=== PATIENT | male | born 1995 | race Caucasian/White ===

== ENCOUNTER 2016-06-07 20:00 | Inpatient (IN) | payer OTHER ==
[~2016-06-07] VITALS: Ht 180.3 cm; Wt 91.2 kg
[2016-06-07 20:06] VITALS: BP 169/70; PULSE 148; RESP 20; TEMP 98.8; O2SAT 99
[2016-06-07] MEDS ORDERED: LORazepam 2 MG/ML VIAL ONE (20:21)
[2016-06-07] MEDS ORDERED: SODIUM CHLOR 0.9% 1000 ML INJ 1,000 ML IV SCH (20:24)
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
[2016-06-07] MEDS ORDERED: SODIUM CHLORIDE 0.9% FLUSH 10 ML FLUSH IVF PRN (20:30)
[2016-06-07] MEDS ORDERED: LORazepam 2 MG/ML VIAL IV PUSH ONE (20:30)
[2016-06-07 20:44] LABS: AUTOMATED NEUTROPHIL # 9.3 TH/MM3 (1.8-7.7); BASOPHIL % 0.2 % (0.0-2.0); EOSINOPHIL % 0.2 % (0.0-4.0); HEMATOCRIT 44.6 % (39.0-51.0); LYMPH % 13.2 % (9.0-44.0); LYMPHOCYTE # 1.6 TH/MM3 (1.0-4.8); MEAN CELL VOLUME 88.4 FL (80.0-100.0); MEAN CORPUSCULAR HEMOGLOBIN 30.4 PG (27.0-34.0); MEAN CORPUSCULAR HGB CONC 34.4 % (32.0-36.0); MONO % 9.5 % (0.0-8.0); NEUT % 76.9 % (16.0-70.0); PLATELET COUNT 311 TH/MM3 (150-450); RED BLOOD COUNT 5.05 MIL/MM3 (4.50-5.90); RED CELL DISTRIBUTION WIDTH 13.5 % (11.6-17.2); WHITE BLOOD COUNT 12.1 TH/MM3 (4.0-11.0)
[2016-06-07 20:47] LABS: HEMO FLAGS AUTO DIFF
[2016-06-07 21:27] LABS: PLATELET ESTIMATE SMEAR NORMAL (NORMAL); PLATELET MORPHOLOGY NORMAL (NORMAL); SCAN/DIFF AUTO DIFF CONFIRMED
[2016-06-07 22:42] VITALS: BP 158/78; PULSE 99; RESP 20; O2SAT 99
[2016-06-07 23:00] LABS: AMPHETAMINE, URINE NEG (NEG); BARBITURATES, URINE NEG (NEG); COCAINE, URINE NEG (NEG)
[2016-06-07] MEDS ORDERED: ONDANSETRON HCL 4 MG/2 ML VIAL ONE (23:21)
[2016-06-07] MEDS ORDERED: ONDANSETRON HCL 4 MG/2 ML VIAL IV ONE (23:30)
[2016-06-08 01:42] LABS: ALKALINE PHOSPHATASE 62 U/L (45-117); TOTAL BILIRUBIN ADULT 2.4 MG/DL (0.2-1.0)
[2016-06-08 01:45] LABS: ALT (GPT) 30 U/L (12-78); ANION GAP 14 MEQ/L (5-15); AST (GOT) 43 U/L (15-37); BICARBONATE 22.4 MEQ/L (21.0-32.0); BLOOD UREA NITROGEN 10 MG/DL (7-18); CHLORIDE 102 MEQ/L (98-107); GLOMERULAR FILTRATION RATE 68 ML/MIN (>89); POTASSIUM 3.8 MEQ/L (3.5-5.1); SODIUM (NA) 138 MEQ/L (136-145)
[2016-06-08 05:56] VITALS: PULSE 140; RESP 22; O2SAT 100
--- NOTE | 2016-06-08 06:14 | PD ---
Physical Exam Time Seen by Provider: 06:00 Data Data Last Documented VS Vital Signs Date Time Temp Pulse Resp B/P Pulse Ox O2 Delivery O2 Flow Rate FiO2 06/08/16 05:56 140 22 100 06/07/16 22:42 158/78 Room Air 06/07/16 20:06 98.8 Orders Lorazepam Inj (Ativan Inj) (06/07/16 20:21) Lorazepam Inj (Ativan Inj) (06/07/16 20:30) Complete Blood Count With Diff (06/07/16 20:24) Comprehensive Metabolic Panel (06/07/16 20:24) Iv Access Insert/Monitor (06/07/16 20:24) Psych Screen (06/07/16 20:24) Sodium Chloride 0.9% Flush (Ns Flush) (06/07/16 20:30) Drug Screen, Random Urine (06/07/16 20:24) Alcohol (Ethanol) (06/07/16 20:24) Sodium Chlor 0.9% 1000 Ml Inj (Ns 1000 M (06/07/16 20:24) Ondansetron Inj (Zofran Inj) (06/07/16 23:30) Ondansetron Inj (Zofran Inj) (06/07/16 23:21) Diet Regular Basic (06/08/16 Breakfast) Lorazepam Inj (Ativan Inj) (06/08/16 06:15) Olanzapine Inj (Zyprexa Inj) (06/08/16 06:15) Electrocardiogram (06/08/16 ) Labs Laboratory Tests Test 06/07/16 06/07/16 06/08/16 20:20 22:41 01:16 White Blood Count 12.1 TH/MM3 Red Blood Count 5.05 MIL/MM3 Hemoglobin 15.3 GM/DL Hematocrit 44.6 % Mean Corpuscular Volume 88.4 FL Mean Corpuscular Hemoglobin 30.4 PG Mean Corpuscular Hemoglobin 34.4 % Concent Red Cell Distribution Width 13.5 % Platelet Count 311 TH/MM3 Mean Platelet Volume 9.8 FL Neutrophils (%) (Auto) 76.9 % Lymphocytes (%) (Auto) 13.2 % Monocytes (%) (Auto) 9.5 % Eosinophils (%) (Auto) 0.2 % Basophils (%) (Auto) 0.2 % Neutrophils # (Auto) 9.3 TH/MM3 Lymphocytes # (Auto) 1.6 TH/MM3 Monocytes # (Auto) 1.2 TH/MM3 Eosinophils # (Auto) 0.0 TH/MM3 Basophils # (Auto) 0.0 TH/MM3 CBC Comment AUTO DIFF Differential Comment AUTO DIFF CONFIRMED Platelet Estimate NORMAL Platelet Morphology Comment NORMAL Red Cell Morphology Comment NORMAL Urine Opiates Screen NEG Urine Barbiturates Screen NEG Urine Amphetamines Screen NEG Urine Benzodiazepines Screen NEG Urine Cocaine Screen NEG Urine Cannabinoids Screen POS Sodium Level 138 MEQ/L Potassium Level 3.8 MEQ/L Chloride Level 102 MEQ/L Carbon Dioxide Level 22.4 MEQ/L Anion Gap 14 MEQ/L Blood Urea Nitrogen 10 MG/DL Creatinine 1.32 MG/DL Estimat Glomerular Filtration 68 ML/MIN Rate Random Glucose 88 MG/DL Calcium Level 8.8 MG/DL Total Bilirubin 2.4 MG/DL Aspartate Amino Transf 43 U/L (AST/SGOT) Alanine Aminotransferase 30 U/L (ALT/SGPT) Alkaline Phosphatase 62 U/L Total Protein 7.4 GM/DL Albumin 4.4 GM/DL Ethyl Alcohol Level LESS THAN 3 MG/DL [facility] Medical Record Reviewed: Yes Supervised Visit with DEVYN: No Narrative Course I was asked to reassess this patient who has been previously medically cleared. Please see previous providers notes. He was initially given Ativan when he arrived here. He then was transferred to [facility] and has been reportedly sleeping throughout the night after Ativan administration. When he was waking back up he became agitated and anxious and tremulous and tachycardic, similar to his initial presentation. On examination he is anxious, tremulous, tachycardic. His labwork has been reviewed. He is positive for cannabinoids, no other drugs. He denies any drug use. I discussed with my attending Dr. Casas who previously examined the patient and spoke to his father, he has had a similar psychotic break in the past. We will provide the patient additional doses of Ativan and Zyprexa here. His initial EKG when he first arrived was sinus tachycardia, repeat EKG reveals sinus tachycardia. This seems to be related to his psychosis. The patient is still medically cleared. Diagnosis Primary Impression: Mood disorder Additional Impression: Anxiety Scripts No Active Prescriptions or Reported Meds Evgeny Alas Jun 08, 2016 06:14
[2016-06-08] MEDS ORDERED: OLANZapine IM 10 MG VIAL IM ONE (06:15)
[2016-06-08] MEDS ORDERED: LORazepam 2 MG/ML VIAL IM ONE (06:15)
[2016-06-08 11:30] VITALS: BP 99/56; PULSE 86; RESP 18; O2SAT 100
--- NOTE | 2016-06-08 13:59 | EKG ---
Date Performed: 06/07/2016 Time Performed: 20:16:02 PTAGE: 20 years EKG: SINUS TACHYCARDIA WITH SHORT NH INTERVAL, POSSIBLE ATRIAL FLUTTER ABNORMAL RHYTHM ECG NO PREVIOUS TRACING DOCTOR: Rosa Ortega Interpretating Date/Time 06/08/2016 13:58:19
--- NOTE | 2016-06-08 14:16 | EKG ---
Date Performed: 06/08/2016 Time Performed: 06:16:07 PTAGE: 20 years EKG: SINUS TACHYCARDIA Since the prior tracing, there has been a slowing of supraventricular tac hycardia, and the patient is now clearly in Sinus rhythm . The PREVIOUS TRACING was most likely sinus rhythm, but clinical correlation would be necessa ry. ABNORMAL RHYTHM ECG INTERPRETATION BASED ON A DEFAULT AGE OF 38 YEARS PREVIOUS TRACING on 06/07/16 DOCTOR: Rosa Ortega Interpretating Date/Time 06/08/2016 14:14:15
[2016-06-08 14:45] VITALS: BP 139/85; PULSE 112; RESP 20; O2SAT 99
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
[2016-06-08] MEDS ORDERED: diphenhydrAMINE HCL 50 MG/ML VIAL IM PRN (15:30)
[2016-06-08] MEDS ORDERED: LORazepam 2 MG/ML VIAL IM PRN (15:30)
[2016-06-08] MEDS ORDERED: MAGNESIUM HYDROXIDE SUSP 30 ML CUP PO PRN (15:30)
[2016-06-08 18:18] VITALS: BP 162/89; PULSE 114; RESP 20; TEMP 98.7; O2SAT 98
[2016-06-08] MEDS ORDERED: ARIPiprazole 5 MG TAB PO SCH (21:00)
[2016-06-08] MEDS: ALUMINUM/MAGNESIUM/SIMETH 30 ML CUP PO PRN (21:15)
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
[2016-06-09] MEDS: traZODone HCL 50 MG TAB PO PRN (00:04)
[2016-06-09] MEDS: LORazepam 1 MG TAB PO PRN ×2 (01:48→13:00)
[2016-06-09 05:45] VITALS: BP 125/76; PULSE 112; RESP 20; TEMP 97.8
[2016-06-09 07:06] LABS: AUTOMATED NEUTROPHIL # 4.7 TH/MM3 (1.8-7.7); BASOPHIL % 0.4 % (0.0-2.0); EOSINOPHIL # 0.1 TH/MM3 (0-0.4); EOSINOPHIL % 1.8 % (0.0-4.0); HEMATOCRIT 40.8 % (39.0-51.0); HEMO FLAGS DIFF FINAL; LYMPH % 24.5 % (9.0-44.0); LYMPHOCYTE # 1.9 TH/MM3 (1.0-4.8); MEAN CELL VOLUME 88.4 FL (80.0-100.0); MEAN CORPUSCULAR HEMOGLOBIN 30.9 PG (27.0-34.0); MONO % 11.2 % (0.0-8.0); NEUT % 62.1 % (16.0-70.0); PLATELET COUNT 242 TH/MM3 (150-450); RED BLOOD COUNT 4.62 MIL/MM3 (4.50-5.90); WHITE BLOOD COUNT 7.6 TH/MM3 (4.0-11.0)
[2016-06-09 07:44] LABS: ALKALINE PHOSPHATASE 66 U/L (45-117); ALT (GPT) 33 U/L (12-78); ANION GAP 11 MEQ/L (5-15); AST (GOT) 55 U/L (15-37); BICARBONATE 25.8 MEQ/L (21.0-32.0); BLOOD UREA NITROGEN 12 MG/DL (7-18); CHLORIDE 102 MEQ/L (98-107); GLOMERULAR FILTRATION RATE 78 ML/MIN (>89); HDL CHOLESTEROL 54.7 MG/DL (40.0-60.0); LDL CHOLESTEROL 26 MG/DL (0-99); POTASSIUM 3.4 MEQ/L (3.5-5.1); SODIUM (NA) 139 MEQ/L (136-145); TOTAL BILIRUBIN ADULT 2.5 MG/DL (0.2-1.0)
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
[2016-06-09] MEDS ORDERED: POTASSIUM CHLORIDE 20 MEQ CONTROLLED RELEASE TAB PO ONE (08:30)
[2016-06-09] MEDS: LORATADINE 10 MG TAB PO SCH (08:57)
--- NOTE | 2016-06-09 10:18 | HHI.PR ---
Subjective Remarks Follow up on patient with AAG, VSD and anxiety. Discussed with NS and patient moved to [address] due to bizarre behavior. Patient states that he feels majestic. He reports to me that his autoimmune disorder is cured. He reports that his heart is beating very well. He has no medical complaints at this time. He denies any palpitations, headaches, dizziness, chest pain, shortness of breath or abdominal pain. Objective Vitals Vital Signs Date Time Temp Pulse Resp B/P Pulse Ox O2 Delivery O2 Flow Rate FiO2 06/09/16 05:45 97.8 112 20 125/76 06/08/16 18:18 98.7 114 20 162/89 98 06/08/16 14:45 112 20 139/85 99 Room Air 06/08/16 11:30 86 18 99/56 100 Room Air Result Diagram: 06/09/16 0604 06/09/16 0604 Objective Remarks GENERAL: This is a well-nourished, well-developed patient. Appears manic. SKIN: No rashes, ecchymoses or lesions. Cool and dry. HEAD: Atraumatic. Normocephalic. No temporal or scalp tenderness. EYES: Extraocular motions intact. No scleral icterus. No injection or drainage. CARDIOVASCULAR: Tachycardic. S1, S2 noted. No murmur appreciated. RESPIRATORY: No accessory muscle use. Clear to auscultation. Breath sounds equal bilaterally. GASTROINTESTINAL: Abdomen soft, non-tender, nondistended. Normoactive bowel sounds x4. MUSCULOSKELETAL: Able to ambulate moves all 4 extremities spontaneously. NEUROLOGICAL: Awake and alert. Manic tangential in speech with flight of ideas. Pressured speech. Medications and IVs Current Medications Medications (Trade) Dose Ordered Sig/Joshua Route Start Time Stop Time Status Last Admin (NS Flush) 2 ml UNSCH PRN IVF 06/07/16 20:30 (Ativan) 1 mg Q6H PRN PO 06/08/16 15:30 06/09/16 13:00 (Ativan Inj) 1 mg Q6H PRN IM 06/08/16 15:30 (Benadryl) 50 mg Q6H PRN PO 06/08/16 15:30 (Benadryl Inj) 50 mg Q6H PRN IM 06/08/16 15:30 (Tylenol) 650 mg Q4H PRN PO 06/08/16 15:30 (Milk Of Magnesia Liq) 30 ml DAILY PRN PO 06/08/16 15:30 (Mag-Al Plus Susp Liq) 30 ml Q6H PRN PO 06/08/16 15:30 06/08/16 21:15 (Desyrel) 50 mg HS PRN PO 06/08/16 15:30 06/09/16 00:04 (Claritin) 10 mg DAILY PO 06/09/16 09:00 (Zofran Odt) 4 mg Q6H PRN PO 06/08/16 21:45 (Abilify) 10 mg HS PO 06/09/16 21:00 A/P Problem List: (1) Mood disorder ICD Code: F39 Status: Acute Assessment and Plan This is a 20-year-old male patient with a past medical history which includes AAG, VSD and anxiety. The patient is currently in inpatient psychiatric center we have been consulted due to history of a AAG and vomiting on a daily basis. Attempted to evaluate patient although patient is psychotic, manic and difficult to assess. Patient reports that he has in the past and returned back to life. Patient has flight of ideas very tangential and unable to provide meaningful information. Psychosis - management per primary psychiatric team Nausea/vomiting - Zofran as needed AAG - Patient states today that he is cured - consult Neurology VSD - last evaluated 2-3 years ago - recommend outpatient follow-up upon discharge Elevated BP measurement of 162/89 - BP well controlled now at 125/76 - tachycardiac - continue to monitor - Clonidine prn with parameters Leucocytosis - improved - WBC 12.1 -> 7.6 - possible stress related Hypokalemia - potassium 3.4 - given by mouth repletion - discussed with patient importance of good po intake JUNIOR - creatinine 1.32 -> 1.17 - likely due to poor po intake - resolved Mild transaminitis - AST 43 --> 55, ALT WNL, alk phos WNL - monitor DVT prophylaxis patient is ambulatory and low risk Written by Ely Chauhan PA-C acting as scribe for Dr. Sarabia on 06/09/16 at 10:17. All or portions of this note were transcribed by scribe Ely GALLEGOS. I , Dr. Nasima Sarabia personally performed the history, physical exam, and medical decision making; and confirmed the accuracy of the information in the transcribed note. Authenticated by Dr. Nasima Sarabia on 06/09/16 at 10:17. Ely Chauhan Jun 09, 2016 10:17 Nasima Sarabia MD Jun 09, 2016 16:45
[2016-06-09] MEDS ORDERED: cloNIDine HCL 0.1 MG TAB PO PRN (15:00)
[2016-06-09 16:36] LABS: HEMOGLOBIN A1b 0.8 %; HEMOGLOBIN Ao 86.8 %; HEMOGLOBIN F 0.7 %; HEMOGLOBIN LA1C 1.8 %; HEMOGLOBIN P3 3.3 %
[2016-06-09 18:16] VITALS: BP 159/86; PULSE 125; RESP 18; TEMP 98.1; O2SAT 100
[2016-06-09] MEDS ORDERED: ARIPiprazole 10 MG TAB PO SCH (21:00)
[2016-06-09] MEDS: ONDANSETRON ODT 4 MG TAB PO PRN (21:01)
[2016-06-10] MEDS: LORazepam 1 MG TAB PO PRN ×2 (02:38→08:41)
[2016-06-10] MEDS: ONDANSETRON ODT 4 MG TAB PO PRN (05:51)
[2016-06-10 06:17] VITALS: BP 161/81; PULSE 92; RESP 18; TEMP 98.1; O2SAT 99
[2016-06-10] MEDS: LORATADINE 10 MG TAB PO SCH (08:40)
[2016-06-10] MEDS: METOPROLOL TARTRATE 25 MG TAB PO SCH ×2 (08:41→20:07)
[2016-06-10] MEDS ORDERED: HALOPERIDOL LACTATE 5 MG/ML AMP ONE (10:28)
[2016-06-10] MEDS ORDERED: LORazepam 2 MG/ML VIAL IM ONE (10:45)
[2016-06-10] MEDS ORDERED: HALOPERIDOL LACTATE 5 MG/ML AMP IM ONE (10:45)
[2016-06-10] MEDS ORDERED: diphenhydrAMINE HCL 50 MG/ML VIAL IM ONE (10:45)
--- NOTE | 2016-06-10 12:07 | HHI.PYPN ---
Subjective Remarks Patient seen and examined. Chart reviewed. Case discussed with nursing staff who reports that the patient remains quite manic, believing that he is Julio. He apparently tried to escape from the unit earlier. Nursing staff has also noted some echolalia. Prior to my evaluation, the patient is growing increasingly agitated, and I have ordered him medicated with Haldol, Ativan and Benadryl ETO. A short time after this has been given, I find the patient in his room. His mood remains quite elevated. He is staring out the window and has been singing loudly. He is impulsive and disinhibited and quite distractible. He says, "I went through Hell. I finally healed. I wanted to help everyone for a good cause." I endeavor to discuss his treatment regimen, but the patient is too psychiatrically impaired to engage in such a discussion. He denies side effects from medications noting "I can tolerate any medication. " I did have a lengthy discussion with patient's mother, Zhane, over the phone regarding patient's treatment plan. She notes that he had an index episode of ching in April 2014. He was treated first with lithium and then with Depakote augmented with various antipsychotics including Abilify. He was hospitalized for about 2 weeks at that time and was discharged into parents care, although mother notes that he remains fairly symptomatic from a psychiatric standpoint. He apparently continue to convalesce with improvement in symptoms over the summer of 2014. He went off of his medications in September 2014 and had no further psychiatric disturbance until the current episode. I have a lengthy discussion of the risks and benefits of psychopharmacologic options going forward including but not limited to titration of Abilify, replacing this with another antipsychotic with mood stabilizing properties such as Seroquel or Zyprexa although these would be somewhat difficult given the risk of orthostatic hypotension, and augmentation once again with a mood stabilizer like lithium or Depakote. I highlight that the patient has mild renal and hepatic impairment and we must keep these issues in mind when selecting treatments. We settle on the treatment plan as detailed below. I spent ~30min in telephone consultation with mother. She thanks me for the call. Review of Systems ROS Limitations: Psychotic, Poor Historian Except as stated in HPI: all other systems reviewed are Neg Objective Alert: Yes [place]: Person, Place Mood: Other (Elevated) Affect: Labile (generally expansive) Memory Intact: Comment (Not formally assessed) Hallucinations: Other (Int stim) Delusions: Yes Delusion Type: Grandiose Suicidal: Ideation (No SI voiced) Homicidal: Ideation (No HI voiced) Insight/Judgment Quite poor Remarks No abnormal motor movements noted. Thought process with significant loosening of associations. Speech pressured and rambling. Grooming and hygiene fair. Labs Labs reviewed. K low, and it appears patient refused replacement. Vitals/IOs Vital Signs Date Time Temp Pulse Resp B/P Pulse Ox O2 Delivery O2 Flow Rate FiO2 06/10/16 06:17 98.1 92 18 161/81 99 06/08/16 14:45 Room Air Intake and Output 06/09/16 06/09/16 06/10/16 08:00 16:00 00:00 Intake Total 240 ml Balance 240 ml Assessment & Plan Problem List: (1) Manic episode, severe with psychotic symptoms Assessment & Plan: BPAD manic vs mood disorder due to GMC vs substance-induced mood disorder ICD Code: F30.2 (2) Use of cannabis ICD Code: F12.90 Assessment & Plan Illness has the form of ching. Unclear if the patient has an underlying bipolar illness or if this is related to his medical issues or perhaps to his substance use. I have adjusted the diagnosis accordingly. Titrate Abilify to 15mg qHS for psychosis and mood stabilization. Add Depakote ER 20mg/kg ~= 1500mg qHS for mood stabilization. Mild AST elevation; check LFTs Fri am and Sat pm when we check VPA and ammonia level. Plt ok. Replete K. Check BMP and Mg in morning. I see Dr. Martinez wanted to get MRI brain, but I fear that the patient remains too decompensated at this point for the procedure to be performed safely and mild renal impairment makes use of contrast undesirable. I will await neurology input. Hospitalist input noted and appreciated. Continue to monitor on the high acuity unit. Continue other medications and care as ordered. Justification for Cont. Inpt. Impairment in reality construction. Impairment in social functioning. Complicating conditions. Medication changes in process. High risk for decompensation in a less restrictive environment. Discharge Planning Pending psychiatric stabilization. Patient's family would like to get the patient into some sort of residential facility for extended stabilization. They are exploring options closer to home in [place], and I've asked him to liaison with the counselor regarding discharge planning. Given that the patient required 2 weeks to stabilize during his last episode, I suspect he will require at least as long on this occasion. Request HC Surrog/Guard Advoc?: Yes Noe Sr MD Jun 10, 2016 12:07
[2016-06-10] MEDS ORDERED: POTASSIUM CHLORIDE 20 MEQ CONTROLLED RELEASE TAB PO ONE (13:00)
--- NOTE | 2016-06-10 13:30 | HHI.PR ---
Subjective Remarks Follow up on patient with AAG, VSD and anxiety. Patient seen and examined today. Patient reports he feels "phenomenal". Informs me today that he had a history of VSD but this has resolved. Denies any acute medical complaints. No fever, chills, dizziness, palpitations, chest pain, shortness of breath, N/V or abdominal pain. Objective Vitals Vital Signs Date Time Temp Pulse Resp B/P Pulse Ox O2 Delivery O2 Flow Rate FiO2 06/10/16 06:17 98.1 92 18 161/81 99 06/09/16 18:16 98.1 125 18 159/86 100 I/O 06/09/16 06/09/16 06/09/16 06/10/16 06/10/16 06/10/16 07:00 15:00 23:00 07:00 15:00 23:00 Intake Total 240 ml Balance 240 ml Intake Oral 240 ml Result Diagram: 06/09/16 0604 06/09/16 0604 Objective Remarks GENERAL: This is a well-nourished, well-developed patient. Patient appears manic. SKIN: No rashes, ecchymoses or lesions. Cool and dry. HEAD: Atraumatic. Normocephalic. No temporal or scalp tenderness. EYES: Extraocular motions intact. No scleral icterus. No injection or drainage. CARDIOVASCULAR: Tachycardic. S1, S2 noted. No murmur appreciated. RESPIRATORY: No accessory muscle use. Clear to auscultation. Breath sounds equal bilaterally. GASTROINTESTINAL: Abdomen soft, non-tender, nondistended. Normoactive bowel sounds x4. MUSCULOSKELETAL: Able to ambulate moves all 4 extremities spontaneously. NEUROLOGICAL: Awake and alert. Manic tangential in speech with flight of ideas. Pressured speech. Medications and IVs Current Medications Medications (Trade) Dose Ordered Sig/Joshua Route Start Time Stop Time Status Last Admin (NS Flush) 2 ml UNSCH PRN IVF 06/07/16 20:30 (Benadryl) 50 mg Q6H PRN PO 06/08/16 15:30 (Benadryl Inj) 50 mg Q6H PRN IM 06/08/16 15:30 06/09/16 16:45 (Tylenol) 650 mg Q4H PRN PO 06/08/16 15:30 (Milk Of Magnesia Liq) 30 ml DAILY PRN PO 06/08/16 15:30 (Mag-Al Plus Susp Liq) 30 ml Q6H PRN PO 06/08/16 15:30 06/08/16 21:15 (Desyrel) 50 mg HS PRN PO 06/08/16 15:30 06/09/16 00:04 (Claritin) 10 mg DAILY PO 06/09/16 09:00 06/10/16 08:40 (Zofran Odt) 4 mg Q6H PRN PO 06/08/16 21:45 06/09/16 21:01 (Catapres) 0.1 mg Q6H PRN PO 06/09/16 15:00 (Lopressor) 12.5 mg Q12HR PO 06/10/16 09:00 06/10/16 08:41 (Abilify) 15 mg HS PO 06/10/16 21:00 (Depakote Er) 1,500 mg HS PO 06/10/16 21:00 (Ativan) 2 mg Q6H PRN PO 06/10/16 15:30 (Ativan Inj) 2 mg Q6H PRN IM 06/10/16 15:30 A/P Problem List: (1) Mood disorder ICD Code: F39 Status: Acute Assessment and Plan This is a 20-year-old male patient with a past medical history which includes AAG, VSD and anxiety. The patient is currently in inpatient psychiatric center we have been consulted due to history of a AAG and vomiting on a daily basis. Attempted to evaluate patient although patient is psychotic, manic and difficult to assess. Patient reports that he has in the past and returned back to life. Patient has flight of ideas very tangential and unable to provide meaningful information. Psychosis - management per primary psychiatric team Nausea/vomiting - Zofran as needed AAG - Patient states today that he is cured - consult Neurology, pending VSD - last evaluated 2-3 years ago - recommend outpatient follow-up upon discharge Elevated BP measurement of 161/81, HR 92 - tachycardiac - Begin Lopressor 12.5 mg twice a day - continue to monitor - Clonidine prn with parameters Leucocytosis - improved - WBC 12.1 -> 7.6 - possible stress related Hypokalemia - potassium 3.4 - given by mouth repletion - discussed with patient importance of good po intake - A.m. labs ordered JUNIOR - creatinine 1.32 -> 1.17 - likely due to poor po intake - resolved Mild transaminitis - AST 43 --> 55, ALT WNL, alk phos WNL - monitor - am labs ordered DVT prophylaxis patient is ambulatory and low risk Written by Ely Chauhan PA-C acting as scribe for Dr. Sarabia on 06/10/16 at 11:17. All or portions of this note were transcribed by scribe Ely GALLEGOS. I, Dr. Nasima Sarabia personally performed the history, physical exam, and medical decision making; and confirmed the accuracy of the information in the transcribed note. Authenticated by Dr. Nasima Sarabia on 06/10/16 at 11:17. Ely Chauhan Jun 10, 2016 13:30 Nasima Sarabia MD Jun 10, 2016 17:29
[2016-06-10] MEDS ORDERED: LORazepam 2 MG/ML VIAL IM PRN (15:30)
[2016-06-10] MEDS: DIVALPROEX SODIUM E.R. 500 MG TAB PO SCH (20:08)
[2016-06-10] MEDS ORDERED: ARIPiprazole 15 MG TAB PO SCH (21:00)
[2016-06-10 21:36] VITALS: BP 139/64; PULSE 92; RESP 20; O2SAT 98
[2016-06-11 05:27] VITALS: BP 154/128; PULSE 105; RESP 18; TEMP 98.2; O2SAT 97
[2016-06-11 06:08] VITALS: BP 98/62
--- NOTE | 2016-06-11 08:08 | MB ---
cc: ROE MENG MD DATE OF CONSULTATION 06/10/2016 REASON FOR CONSULTATION Patient with history of AAG for neurological evaluation. HISTORY OF PRESENT ILLNESS Mr. Weaver is a 20-year-old male with a past medical history that includes a AAG/autoimmune autonomic ganglionopathy, VSD and anxiety. The patient is currently in an inpatient psychiatry Center and neurology is consulted to evaluate for this condition. The patient is diagnosed with psychosis ching. During the encounter, the patient was pleasant. Two nurses were at the bedside during my assessment. The patient states that he has no complaints and apparently he is knowledgeable on his condition and he states that he had episodes where his pupils became dilated, very dry mouth, lost his hair with occasional syncopal episodes and what he calls seizures. He was treated with IVIG and plasma exchange at [facility] in [place] and the first time he was diagnosed he was in [place]. The patient denies headache, blurred vision, syncopal episode, dry mouth, convulsions, weakness, numbness, slurred speech at this time. The patient is currently on no medications for control of his autonomic dysfunction. 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 REVIEW OF SYSTEMS A 12-point review of systems is negative except for what is stated in the HPI. ALLERGIES No known allergies. PAST MEDICAL HISTORY 1. AAG 2. VSD and anxiety. PAST SURGICAL HISTORY Congenital missing testicle and prosthesis placed at 13 years old. MEDICATIONS No reported medications. FAMILY HISTORY Mother with history of depression. Grandfather heart disease, cardiac valve disease. Father hypertensive. SOCIAL HISTORY No reported tobacco abuse. Urine toxicology positive for cannabis. PHYSICAL EXAMINATION GENERAL: Awake, alert, well-nourished, pleasant, good historian, calm and cooperative. HEENT: Atraumatic, normocephalic. Intact hearing and vision. CARDIOVASCULAR: Regular rate and rhythm. RESPIRATORY: Clear to auscultation. No wheezes. ABDOMEN: Soft, nontender. MUSCULOSKELETAL: No edema. No deformity, able to move four extremities. NEUROLOGIC: Awake, alert and oriented to time, person and place. Intact speech. Intact speech content. Cranial nerves II through XII are grossly intact. Motor, sensory, and cerebellar function are intact. Intact standing and gait. Romberg is negative. No ataxia. LABORATORY DATA UAT positive for cannabinoids.WBC 7.6, hemoglobin 14.3, platelet 242.Sodium is 139 potassium 3.4, BUN 12, creatinine 1.17, A1c is 5.1, calcium 9.1,bilirubin 12.5, AST 55, ALT 33, cholesterol 90, TSH 0.854. DIAGNOSTIC IMPRESSION 1. Autoimmune autonomic ganglionopathy (AAG) 2. Anxiety 3. Psychosis PLAN 1. Neurological examination is nonfocal. 2. No evidence of clinical signs or symptoms of any autonomic disturbances/dysautonomia. 3. Neuro checks q. four hourly. 4. Orthostatic vitals q.12 hourly. 5. Neurology will sign off. 6. Please call for questions. Thank you for the opportunity to participate in the care of this patient. MD KEMAR Chang/MARYLOU /12:55 AM /7:48 AM JIMMY
[2016-06-11] MEDS: LORATADINE 10 MG TAB PO SCH (08:29)
[2016-06-11] MEDS: METOPROLOL TARTRATE 25 MG TAB PO SCH ×2 (08:31→21:08)
[2016-06-11 08:35] VITALS: BP 143/72; PULSE 96; RESP 16
[2016-06-11 08:36] VITALS: BP 155/81; PULSE 98; RESP 16
[2016-06-11 08:37] VITALS: BP 153/71; PULSE 97; RESP 16
[2016-06-11 08:51] LABS: BICARBONATE 27.6 MEQ/L (21.0-32.0); MAGNESIUM 2.3 MG/DL (1.5-2.5); POTASSIUM 3.9 MEQ/L (3.5-5.1)
--- NOTE | 2016-06-11 10:33 | HHI.PYPN ---
Subjective Remarks Patient seen and examined. Chart reviewed. Case discussed with nursing staff. RN has spoken with parents who report patient is on Restasis and PRN saline eyedrops. Patient remains internally stimulated per nursing staff. Techs tell me patient is starting to ramp up. For me today, patient is irritable, impulsive, internally stimulated. His mood seems to be turning more dysphoric. His case was presented to the [employer] [facility], and the patient insulted the health science writer, saying "it sounds like you have Alzheimer's." No evident side effects from medications. RN does report some episodes of emesis overnight and patient does have Zofran ordered PRN. Review of Systems ROS Limitations: Psychotic, Poor Historian Except as stated in HPI: all other systems reviewed are Neg Objective Alert: Yes [place]: Person, Place Mood: Angry, Other (irritable) Affect: Restricted (more dysphoric today) Memory Intact: Comment (Not formally assessed) Hallucinations: Other (Remains int stim) Delusions: No Delusion Type: Other (None elicited today) Suicidal: Ideation (No SI) Homicidal: Ideation (No HI) Insight/Judgment Poor Remarks No motor abnormalities noted. Thought process somewhat disorganized. Speech rambling at times. Grooming and hygiene fair. Labs Labs reviewed. Renal function improved. No electrolyte abnormalities despite reports of emesis. Test 06/11/16 08:00 Sodium Level 141 MEQ/L Potassium Level 3.9 MEQ/L Chloride Level 105 MEQ/L Carbon Dioxide Level 27.6 MEQ/L Anion Gap 8 MEQ/L Blood Urea Nitrogen 10 MG/DL Creatinine 1.11 MG/DL Estimat Glomerular Filtration 83 ML/MIN Rate Random Glucose 95 MG/DL Calcium Level 9.0 MG/DL Magnesium Level 2.3 MG/DL Vitals/IOs Vital Signs Date Time Temp Pulse Resp B/P Pulse Ox O2 Delivery O2 Flow Rate FiO2 06/11/16 08:37 97 16 153/71 06/11/16 05:27 98.2 97 06/08/16 14:45 Room Air Assessment & Plan Problem List: (1) Manic episode, severe with psychotic symptoms ICD Code: F30.2 (2) Use of cannabis ICD Code: F12.90 Assessment & Plan Patient remained severely decompensated with respect to his mood disorder with psychotic features. I suspect that the patient is becoming more irritable as the duration of ongoing ching lengthens, although I cannot rule-out possibility of him slipping into a mixed state. Titrate Abilify to 20mg for mood stabilization and for psychosis. Continue loading with Depakote. Labs ordered for Depakote as before. I have added a Haldol PRN in light of potential for significant agitation. Continue to monitor on inpatient unit. Patient was retained by the [employer] health science writer on the inpatient psychiatric unit and his mother was appointed as GA. Justification for Cont. Inpt. Impairment in reality construction. Impairment in social function. Complicating conditions, namely the emesis which could be affecting absorption of psychotropics. Medication changes and process. High risk for decompensation in a less restrictive environment. Discharge Planning Pending psychiatric stabilization. Request HC Surrog/Guard Advoc?: Yes Noe Sr MD Jun 11, 2016 10:33
[2016-06-11] MEDS: LORazepam 1 MG TAB PO PRN (11:31)
[2016-06-11] MEDS ORDERED: HALOPERIDOL LACTATE 5 MG/ML AMP IM PRN (12:15)
[2016-06-11] MEDS ORDERED: HALOPERIDOL 5 MG TAB PO PRN (12:15)
[2016-06-11 18:39] VITALS: BP 162/84; PULSE 111; RESP 18; TEMP 98.2; O2SAT 97
[2016-06-11] MEDS ORDERED: RESTASIS EYE EACH EYE SCH (21:00)
[2016-06-11] MEDS: DIVALPROEX SODIUM E.R. 500 MG TAB PO SCH (21:08)
[2016-06-12 05:52] VITALS: BP 120/83; PULSE 85; RESP 16; TEMP 98.4; O2SAT 99
[2016-06-12] MEDS: METOPROLOL TARTRATE 25 MG TAB PO SCH ×2 (08:18→21:21)
[2016-06-12] MEDS: LORATADINE 10 MG TAB PO SCH (08:18)
[2016-06-12 09:40] LABS: INDIRECT BILIRUBIN 0.7 MG/DL (0.0-0.8); TOTAL BILIRUBIN ADULT 0.9 MG/DL (0.2-1.0)
[2016-06-12] MEDS: ONDANSETRON ODT 4 MG TAB PO PRN (10:21)
--- NOTE | 2016-06-12 10:58 | HHI.PYPN ---
Subjective Remarks Patient seen and examined. Chart reviewed. Case discussed with nursing staff, who reports that the patient seems more organized. On my examination today, patient complains of some nausea, and RN will provide PRN Amaurian. Patient links the nausea to psychotropics but see below. Some ongoing loosening of associations, but I agree that this is improved. He appears less internally stimulated. Denies any AVH. Denies side effects from medications otherwise. Spoke with patient's mother and guardian advocate. She was in to visit the patient Wednesday as well as evening. Some improvement noted although the patient did seem a little more psychotic evening per mother's report, although general trajectory is toward slow improvement. Mother notes that the patient has had nausea as a feature of his neurological illness independent of medications. I discussed the treatment plan going forward as detailed below. She is in agreement with the plan. She plans to come over the weekend to visit with the patient. She thanks me for the call. Review of Systems ROS Limitations: Psychotic, Poor Historian Except as stated in HPI: all other systems reviewed are Neg Objective Alert: Yes [place]: Person, Place Mood: Other (Calmer) Affect: Blunted Memory Intact: Comment (Not formally assessed) Hallucinations: Other (Denies AVH) Delusions: No Delusion Type: Other (some bizarre ideation but no khang delusions) Suicidal: Ideation (No SI) Homicidal: Ideation (No HI) Insight/Judgment Poor Remarks No abnormal motor movements noted. Thought process somewhat more organized. Speech not pressured. Labs Test 06/12/16 08:00 Total Bilirubin 0.9 MG/DL Direct Bilirubin 0.2 MG/DL Indirect Bilirubin 0.7 MG/DL Aspartate Amino Transf 29 U/L (AST/SGOT) Alanine Aminotransferase 36 U/L (ALT/SGPT) Alkaline Phosphatase 68 U/L Total Protein 7.7 GM/DL Albumin 4.1 GM/DL Labs reviewed. LFTs have normalized. Vitals/IOs Vital Signs Date Time Temp Pulse Resp B/P Pulse Ox O2 Delivery O2 Flow Rate FiO2 06/12/16 05:52 98.4 85 16 120/83 99 06/08/16 14:45 Room Air Assessment & Plan Problem List: (1) Manic episode, severe with psychotic symptoms ICD Code: F30.2 (2) Use of cannabis ICD Code: F12.90 Assessment & Plan Titrate Abilify over the weekend for mood stabilization and psychosis. Continue Depakote as ordered. Plan to check a Depakote level over the weekend and adjust the dose based on the level. Continue to monitor on the inpatient unit. Continue other medications and care as ordered. Justification for Cont. Inpt. Impairment in reality construction. Medication changes in process. High risk for decompensation in a less restrictive environment. Discharge Planning Pending psychiatric stabilization. I anticipate the patient will require an additional 1-2 weeks for adequate stabilization for safe discharge. Request HC Surrog/Guard Advoc?: Yes Noe Sr MD Jun 12, 2016 10:58
[2016-06-12] MEDS: LORazepam 1 MG TAB PO PRN (11:07)
[2016-06-12] MEDS ORDERED: PILL SPLITTER OTHER PRN (11:45)
[2016-06-12 18:02] VITALS: BP 146/89; PULSE 108; RESP 16; TEMP 97.9; O2SAT 98
[2016-06-12 18:49] VITALS: BP 134/83; PULSE 116; RESP 19; TEMP 98.2; O2SAT 100
[2016-06-12 19:05] VITALS: BP 132/82; PULSE 99; RESP 20; TEMP 98.8; O2SAT 100
[2016-06-12] MEDS: ARIPiprazole 10 MG TAB PO SCH (21:00)
[2016-06-12] MEDS ORDERED: ARIPiprazole 10 MG TAB PO SCH (21:00)
[2016-06-12] MEDS ORDERED: FLUTICASONE PROPIONATE 50 MCG/ACT 16 GM NASAL SPRAY NASAL SCH (21:00)
[2016-06-12] MEDS: DIVALPROEX SODIUM E.R. 500 MG TAB PO SCH (21:22)
[2016-06-12] MEDS: diphenhydrAMINE HCL 50 MG CAP PO PRN (21:35)
[2016-06-12 23:00] VITALS: BP 135/82; PULSE 88; RESP 20; TEMP 98.6; O2SAT 100
[2016-06-13 03:12] VITALS: BP 134/80; PULSE 80; RESP 20; TEMP 98.8
[2016-06-13 05:37] VITALS: BP 121/60; PULSE 83; RESP 17; TEMP 98; O2SAT 99
[2016-06-13] MEDS: METOPROLOL TARTRATE 25 MG TAB PO SCH ×2 (08:17→21:00)
[2016-06-13] MEDS: LORATADINE 10 MG TAB PO SCH (08:17)
[2016-06-13] MEDS: SODIUM CHLORIDE 0.65% NASAL SPRAY 45 ML BTL EACH NARE PRN (09:13)
[2016-06-13] MEDS: ONDANSETRON ODT 4 MG TAB PO PRN (09:13)
[2016-06-13] MEDS: LORazepam 1 MG TAB PO PRN ×2 (13:30→22:00)
--- NOTE | 2016-06-13 14:51 | HHI.PR ---
Subjective Remarks Follow up on patient with AAG, VSD and anxiety. Patient seems depressed, and states he wishes he can be home with his family for Chrissy. He continues to complain of nausea, but states it is when he takes his psych meds, and the Zofran works most of the time. He also is having abdominal cramping and states it its because he is not eating the food he eats at home. He is requesting a gluten free diet with protein shacks. He did have a BM today. Denies any acute medical complaints. No fever, chills, dizziness, palpitations, chest pain, shortness of breath. Objective Vitals Vital Signs Date Time Temp Pulse Resp B/P Pulse Ox O2 Delivery O2 Flow Rate FiO2 06/13/16 05:37 98.0 83 17 121/60 99 06/13/16 03:12 98.8 80 20 134/80 06/12/16 23:00 98.6 88 20 135/82 100 06/12/16 19:05 98.8 99 20 132/82 100 06/12/16 18:49 98.2 116 19 134/83 100 06/12/16 18:02 97.9 108 16 146/89 98 Result Diagram: 06/09/16 0604 06/11/16 0800 Objective Remarks GENERAL: This is a well-nourished, well-developed patient. Patient appears depressed. SKIN: No rashes, ecchymoses or lesions. Cool and dry. HEAD: Atraumatic. Normocephalic. No temporal or scalp tenderness. EYES: Extraocular motions intact. No scleral icterus. No injection or drainage. CARDIOVASCULAR: Tachycardic. S1, S2 noted. No murmur appreciated. RESPIRATORY: No accessory muscle use. Clear to auscultation. Breath sounds equal bilaterally. GASTROINTESTINAL: Abdomen soft, non-tender, nondistended. Normoactive bowel sounds x4. MUSCULOSKELETAL: Able to ambulate moves all 4 extremities spontaneously. NEUROLOGICAL: Awake and alert. Normal speech. Does not appear manic. Medications and IVs Current Medications Medications (Trade) Dose Ordered Sig/Joshua Route Start Time Stop Time Status Last Admin (Benadryl) 50 mg Q6H PRN PO 06/08/16 15:30 06/12/16 21:35 (Benadryl Inj) 50 mg Q6H PRN IM 06/08/16 15:30 06/09/16 16:45 (Tylenol) 650 mg Q4H PRN PO 06/08/16 15:30 (Milk Of Magnesia Liq) 30 ml DAILY PRN PO 06/08/16 15:30 (Mag-Al Plus Susp Liq) 30 ml Q6H PRN PO 06/08/16 15:30 06/08/16 21:15 (Desyrel) 50 mg HS PRN PO 06/08/16 15:30 06/09/16 00:04 (Claritin) 10 mg DAILY PO 06/09/16 09:00 06/13/16 08:17 (Zofran Odt) 4 mg Q6H PRN PO 06/08/16 21:45 06/13/16 09:13 (Catapres) 0.1 mg Q6H PRN PO 06/09/16 15:00 (Lopressor) 12.5 mg Q12HR PO 06/10/16 09:00 06/13/16 08:17 (Depakote Er) 1,500 mg HS PO 06/10/16 21:00 06/12/16 21:22 (Ativan) 2 mg Q6H PRN PO 06/10/16 15:30 06/13/16 13:30 (Ativan Inj) 2 mg Q6H PRN IM 06/10/16 15:30 06/10/16 23:55 Patient Own Medication Restasis. 1gtt each eye BID. BID EACH EYE 06/11/16 21:00 Hold (Tears Naturale Opth Soln) 1 drop Q4H PRN EACH EYE 06/11/16 10:45 (Haldol) 5 mg Q6H PRN PO 06/11/16 12:15 (Haldol Inj) 5 mg Q6H PRN IM 06/11/16 12:15 (Mantoloking [place] C [place]) 2 spray Q4H PRN EACH NARE 06/12/16 11:30 06/13/16 09:13 (Pill Splitter) 1 ea UNSCH PRN OTHER 06/12/16 11:45 (Abilify) 25 mg Taper HS PO 06/12/16 21:00 06/23/16 20:59 06/12/16 21:00 Urinary Catheter: No Vascular Central Line Catheter: No A/P Problem List: (1) Mood disorder ICD Code: F39 Status: Acute (2) Seasonal allergies ICD Code: J30.2 Status: Acute (3) Hypokalemia ICD Code: E87.6 Status: Acute (4) HTN (hypertension) ICD Code: I10 Status: Acute Assessment and Plan This is a 20-year-old male patient with a past medical history which includes AAG, VSD and anxiety. The patient is currently in inpatient psychiatric center we have been consulted due to history of a AAG and vomiting on a daily basis. Attempted to evaluate patient although patient is psychotic, manic and difficult to assess. Patient reports that he has in the past and returned back to life. Patient has flight of ideas very tangential and unable to provide meaningful information. Psychosis - management per primary psychiatric team Nausea/vomiting, improving - Zofran as needed -Gluten free diet ordered Seasonal allergies, chronic -Cont Claritin -Add Flonase bid AAG - Patient states today that he is cured - consult Neurology has signed off, states nothing they can do. VSD - last evaluated 2-3 years ago - recommend outpatient follow-up upon discharge Elevated BP measurement, resolved 121/80 HR 82 - Cont Lopressor 12.5 mg twice a day - continue to monitor - Clonidine prn with parameters Leucocytosis - improved - WBC 12.1 -> 7.6 - possible stress related Hypokalemia, resolved - potassium 3.4-->3.9 - given by mouth repletion - discussed with patient importance of good po intake JUNIOR, resolved - creatinine 1.32 -> 1.17 - likely due to poor po intake - resolved Mild transaminitis resolved - monitor DVT prophylaxis patient is ambulatory and low risk Discussed with nursing staff, patient, and Dr. Luna Discharge Planning Per psych Guerda Cooper Jun 13, 2016 14:51
[2016-06-13 20:20] VITALS: BP 130/81; PULSE 88; RESP 18; TEMP 98.3; O2SAT 98
[2016-06-13] MEDS: FLUTICASONE PROPIONATE 50 MCG/ACT 16 GM NASAL SPRAY NASAL SCH (21:00)
[2016-06-13] MEDS: DIVALPROEX SODIUM E.R. 500 MG TAB PO SCH (21:00)
--- NOTE | 2016-06-13 21:34 | HHI.PYPN ---
Subjective Remarks PT seen and discussed with staff. He remains euphoric and delusional. He reports that his mood is "AMAZING!" He continues to respond to internal stimuli but is taking medications and denies side effects. No SI/HI Objective Alert: Yes [place]: Person, Place Mood: Other (exuberant) Affect: Other (expansive) Memory Intact: Comment (intact) Hallucinations: Other (Denies AVH) Delusions: Yes Delusion Type: Other (bizarre ideations) Suicidal: Ideation (No SI) Homicidal: Ideation (No HI) Insight/Judgment poor Vitals/IOs Vital Signs Date Time Temp Pulse Resp B/P Pulse Ox O2 Delivery O2 Flow Rate FiO2 06/13/16 20:20 98.3 88 18 130/81 98 Assessment & Plan Problem List: (1) Manic episode, severe with psychotic symptoms ICD Code: F30.2 (2) Use of cannabis ICD Code: F12.90 Assessment & Plan Continue current tx plan Estimated LOS: days Justification for Cont. Inpt. impairments in reality construction Request HC Surrog/Guard Advoc?: Yes Cherelle Fish MD Jun 13, 2016 21:34
[2016-06-13] MEDS: ARIPiprazole 10 MG TAB PO SCH (21:54)
[2016-06-13] MEDS: ARTIFICIAL TEARS OPTH SOLN 15 ML BTL EACH EYE PRN (22:00)
[2016-06-14 06:23] VITALS: BP 123/61; PULSE 88; RESP 17; TEMP 97.4; O2SAT 98
[2016-06-14] MEDS: ONDANSETRON ODT 4 MG TAB PO PRN (08:12)
[2016-06-14] MEDS: LORATADINE 10 MG TAB PO SCH (08:12)
[2016-06-14] MEDS: METOPROLOL TARTRATE 25 MG TAB PO SCH ×2 (08:12→20:46)
[2016-06-14] MEDS: FLUTICASONE PROPIONATE 50 MCG/ACT 16 GM NASAL SPRAY NASAL SCH ×2 (08:13→21:58)
[2016-06-14 08:54] LABS: INDIRECT BILIRUBIN 0.6 MG/DL (0.0-0.8); TOTAL BILIRUBIN ADULT 0.8 MG/DL (0.2-1.0)
[2016-06-14] MEDS: LORazepam 1 MG TAB PO PRN (11:27)
[2016-06-14] MEDS: PANTOPRAZOLE SOD 20 MG DELAYED RELEASE TAB PO SCH (11:45)
--- NOTE | 2016-06-14 13:11 | HHI.PYPN ---
Subjective Remarks Pt seen and discussed with staff. Pt refused Depakote last night. He remains manic and intrusive. He reports that mood is "Excellent! Wonderful!" He denies medication side effects. No SI/HI. Objective Alert: Yes [place]: Person, Place, Date Mood: Other (euphoric) Affect: Manic Memory Intact: Comment (intact) Hallucinations: Other (Denies AVH) Delusions: Yes Delusion Type: Other (bizarre ideations) Suicidal: Ideation (No SI) Homicidal: Ideation (No HI) Insight/Judgment poor Labs Test 06/14/16 08:20 Total Bilirubin 0.8 MG/DL Direct Bilirubin 0.2 MG/DL Indirect Bilirubin 0.6 MG/DL Aspartate Amino Transf 16 U/L (AST/SGOT) Alanine Aminotransferase 29 U/L (ALT/SGPT) Alkaline Phosphatase 69 U/L Ammonia 16 MCMOL/L Total Protein 7.6 GM/DL Albumin 4.0 GM/DL Valproic Acid (Depakene) Level 96 MCG/ML Vitals/IOs Vital Signs Date Time Temp Pulse Resp B/P Pulse Ox O2 Delivery O2 Flow Rate FiO2 06/14/16 06:23 97.4 88 17 123/61 98 Assessment & Plan Problem List: (1) Manic episode, severe with psychotic symptoms ICD Code: F30.2 (2) Use of cannabis ICD Code: F12.90 Assessment & Plan Continue current tx plan. Reinforced need for compliance with medication. Pt c/ o of GERD symptoms and reports hx of PPI use at home. Will start protonix. Estimated LOS: days Justification for Cont. Inpt. impairments in reality testing and social functioning. Request HC Surrog/Guard Advoc?: Yes Cherelle Fish MD Jun 14, 2016 13:11
[2016-06-14 18:30] VITALS: BP_SYST 115; BP_SYST 98; BP_DIAS 61; BP_DIAS 62; PULSE 74; RESP 16; RESP 18; TEMP 97.4; TEMP 97.8; O2SAT 98
[2016-06-14] MEDS: ARIPiprazole 10 MG TAB PO SCH (20:45)
[2016-06-14] MEDS: DIVALPROEX SODIUM E.R. 500 MG TAB PO SCH (20:45)
[2016-06-15 05:20] VITALS: BP 135/61; PULSE 72; RESP 18; TEMP 98; O2SAT 100
[2016-06-15] MEDS: METOPROLOL TARTRATE 25 MG TAB PO SCH ×2 (09:08→20:13)
[2016-06-15] MEDS: LORATADINE 10 MG TAB PO SCH (09:08)
[2016-06-15] MEDS: FLUTICASONE PROPIONATE 50 MCG/ACT 16 GM NASAL SPRAY NASAL SCH ×2 (09:08→20:15)
[2016-06-15] MEDS: PANTOPRAZOLE SOD 20 MG DELAYED RELEASE TAB PO SCH (09:08)
--- NOTE | 2016-06-15 10:04 | HHI.PYPN ---
Subjective Remarks Patient seen and examined with counselor. Chart reviewed. Case discussed with nursing staff who reports patient has been behaving fairly appropriately on the unit although he did have an episode of tearfulness after conversing with his mother. On my examination today, the patient seems more appropriate in conversation. His thought process seems more linear, although he does derail with extended questioning. Mood seems more stable. He reports that he is sleeping better subjectively. He denies any audiovisual hallucinations. Denies any suicidal or homicidal ideation. Denies any side effects from medications. Spoke with patient's mother and guardian advocate over the phone. She feels that the patient continues to improve although not linearly so. Notes some ongoing issues with mood lability and thought disorganization at times. She is worried that he looks a little tired during their visits, and I note that he frequently receives Ativan PRN around noontime, which might be contributing. We discuss treatment plan going forward as well as aftercare plans. Family is looking into residential stabilization facilities. She thanks me for the call. Review of Systems ROS Limitations: Poor Historian Except as stated in HPI: all other systems reviewed are Neg Objective Alert: Yes [place]: Person, Place, Date Mood: Calm Affect: Appropriate Memory Intact: Comment (intact) Hallucinations: Other (Denies audiovisual hallucinations) Delusions: No Delusion Type: Other (no khang delusions elicited today) Suicidal: Ideation (denies SI) Homicidal: Ideation (denies HI) Insight/Judgment Poor but perhaps improving somewhat Remarks No motor abnormalities noted. Thought process more linear as noted above. Speech within normal limits for rate, tone and volume. Grooming and hygiene fair. Labs Labs reviewed. Depakote level 96 and ammonia level not elevated when last checked. Vitals/IOs Vital Signs Date Time Temp Pulse Resp B/P Pulse Ox O2 Delivery O2 Flow Rate FiO2 06/15/16 05:20 98.0 72 18 135/61 100 Assessment & Plan Problem List: (1) Manic episode, severe with psychotic symptoms ICD Code: F30.2 (2) Use of cannabis ICD Code: F12.90 Assessment & Plan Continue Depakote and Abilify as ordered. It is my hope that we can adequately stabilize patient's condition without introducing a third psychotropic. Taper Ativan PRN to 1mg/dose. Continue to monitor on the high acuity unit. Continue other medications and care as ordered. Justification for Cont. Inpt. High risk for decompensation in a less restrictive environment Discharge Planning Pending psychiatric stabilization Request HC Surrog/Guard Advoc?: Yes Noe Sr MD Jun 15, 2016 10:04
[2016-06-15] MEDS: ACETAMINOPHEN 325 MG TAB PO PRN (12:28)
[2016-06-15] MEDS ORDERED: LORazepam 2 MG/ML VIAL IM PRN (15:30)
[2016-06-15 16:44] VITALS: BP 152/76; PULSE 104; RESP 18; TEMP 98.7; O2SAT 100
[2016-06-15 17:29] VITALS: BP 152/76; PULSE 104; RESP 18; TEMP 98.7; O2SAT 100
[2016-06-15] MEDS: ARIPiprazole 10 MG TAB PO SCH (20:12)
[2016-06-15] MEDS: DIVALPROEX SODIUM E.R. 500 MG TAB PO SCH (20:13)
[2016-06-15] MEDS: ALUMINUM/MAGNESIUM/SIMETH 30 ML CUP PO PRN (20:14)
[2016-06-16] MEDS: FLUTICASONE PROPIONATE 50 MCG/ACT 16 GM NASAL SPRAY NASAL SCH ×2 (09:00→20:36)
[2016-06-16] MEDS: ONDANSETRON ODT 4 MG TAB PO PRN (09:13)
[2016-06-16] MEDS: LORATADINE 10 MG TAB PO SCH (09:14)
[2016-06-16] MEDS: PANTOPRAZOLE SOD 20 MG DELAYED RELEASE TAB PO SCH (09:14)
[2016-06-16] MEDS: METOPROLOL TARTRATE 25 MG TAB PO SCH ×2 (09:14→20:34)
[2016-06-16] MEDS: LORazepam 1 MG TAB PO PRN (09:14)
--- NOTE | 2016-06-16 12:44 | HHI.PYPN ---
Subjective Remarks Patient seen and examined with nurse. Chart reviewed. Case discussed in treatment team with nurse and counselor. On my examination today, the patient seems more symptomatic. He appears more internally preoccupied today versus previous days. He articulates a belief that the physical structure of the hospital is somehow making him sick. He insists "I'm fine. I'm perfectly fine. " He says further that "I only did this for my parents." He insists that his parents are the ones with mental health issues. He says, "This is called being butthurt. You think it's right that I'm not stable, but my mental state is just a game." Complains of reflux symptoms/nausea and asks for PPI to be titrated. Complains of some dysuria but no frequency or urinary malodor. Denies side effects from medications. Review of Systems ROS Limitations: Psychotic, Poor Historian Except as stated in HPI: all other systems reviewed are Neg Objective Alert: Yes [place]: Person, Place, Date Mood: Other (Irritable, dysphoric) Affect: Restricted Memory Intact: Comment (intact) Hallucinations: Other (Int stim) Delusions: Yes Delusion Type: Paranoid Suicidal: Ideation (No SI) Homicidal: Ideation (No HI) Insight/Judgment Poor Remarks No motor abnormalities noted. Eye contact is inappropriately intense. Grooming and hygiene fair. Thought processes somewhat disorganized. Speech little bit rambling. Labs Labs reviewed. Vitals/IOs Vital Signs Date Time Temp Pulse Resp B/P Pulse Ox O2 Delivery O2 Flow Rate FiO2 06/15/16 17:29 98.7 104 18 152/76 100 Assessment & Plan Problem List: (1) Manic episode, severe with psychotic symptoms ICD Code: F30.2 (2) Use of cannabis ICD Code: F12.90 Assessment & Plan Interval worsening in patient's mood disorder with psychotic features. The patient had been improving. I wonder about some degree of covert medication nonadherence. I will check a Depakote level to investigate this. Continue mouth checks. If it appears the patient has been adherent, we may need to consider adjusting therapy. I will titrate his PPI. Check a urinalysis given complaints of dysuria. Hospitalist senior analytic consultant input noted and appreciated. Continue to monitor on the inpatient unit. Continue other medications and care as ordered. Justification for Cont. Inpt. Interval worsening in patient's condition. Impairment in reality construction. Complicating conditions, namely concern for possible nonadherence. High risk for decompensation in a less restrictive environment. Discharge Planning Pending psychiatric stabilization. Request HC Surrog/Guard Advoc?: Yes Noe Sr MD Jun 16, 2016 12:44
--- NOTE | 2016-06-16 14:47 | HHI.PR ---
Subjective Remarks Follow up on patient with AAG, VSD and anxiety. Patient reports that he feels well today. He states he is very relaxed because of the music the pianist has been playing for them in the music room. He shares with us today that he has plans of going to medical school and becoming a cardiovascular surgeon. He ensures us he is very stable and the only reason he was hospitalized was to prove a point to his parents. He does report occasional palpitations or " little seizures" of his heart intermittently but states he is asymptomatic at present. He denies any other acute medical complaints. Objective Vitals Vital Signs Date Time Temp Pulse Resp B/P Pulse Ox O2 Delivery O2 Flow Rate FiO2 06/15/16 17:29 98.7 104 18 152/76 100 06/15/16 16:44 98.7 104 18 152/76 100 Objective Remarks GENERAL: This is a well-nourished, well-developed patient. Patient appears more calm today. SKIN: Warm and dry. HEAD: Atraumatic. Normocephalic. No temporal or scalp tenderness. EYES: Extraocular motions intact. No scleral icterus. No injection or drainage. CARDIOVASCULAR: Tachycardic. S1, S2 noted. No murmur appreciated. RESPIRATORY: No accessory muscle use. Clear to auscultation. Breath sounds equal bilaterally. GASTROINTESTINAL: Abdomen soft, non-tender, nondistended. Normoactive bowel sounds x4. MUSCULOSKELETAL: Able to ambulate moves all 4 extremities spontaneously. NEUROLOGICAL: Awake and alert. No focal neurologic findings. Able to move all 4 extremities. Medications and IVs Current Medications Medications (Trade) Dose Ordered Sig/Joshua Route Start Time Stop Time Status Last Admin (Benadryl) 50 mg Q6H PRN PO 06/08/16 15:30 06/12/16 21:35 (Benadryl Inj) 50 mg Q6H PRN IM 06/08/16 15:30 06/09/16 16:45 (Tylenol) 650 mg Q4H PRN PO 06/08/16 15:30 06/15/16 12:28 (Milk Of Magnesia Liq) 30 ml DAILY PRN PO 06/08/16 15:30 (Mag-Al Plus Susp Liq) 30 ml Q6H PRN PO 06/08/16 15:30 06/15/16 20:14 (Desyrel) 50 mg HS PRN PO 06/08/16 15:30 06/09/16 00:04 (Claritin) 10 mg DAILY PO 06/09/16 09:00 06/16/16 09:14 (Zofran Odt) 4 mg Q6H PRN PO 06/08/16 21:45 06/16/16 09:13 (Catapres) 0.1 mg Q6H PRN PO 06/09/16 15:00 (Lopressor) 12.5 mg Q12HR PO 06/10/16 09:00 06/16/16 09:14 (Depakote Er) 1,500 mg HS PO 06/10/16 21:00 06/15/16 20:13 Patient Own Medication Restasis. 1gtt each eye BID. BID EACH EYE 06/11/16 21:00 Hold (Tears Naturale Opth Soln) 1 drop Q4H PRN EACH EYE 06/11/16 10:45 06/13/16 22:00 (Haldol) 5 mg Q6H PRN PO 06/11/16 12:15 (Haldol Inj) 5 mg Q6H PRN IM 06/11/16 12:15 (Posey Juan C Rowlett) 2 spray Q4H PRN EACH NARE 06/12/16 11:30 06/13/16 09:13 (Pill Splitter) 1 ea UNSCH PRN OTHER 06/12/16 11:45 (Abilify) 30 mg Taper HS PO 06/12/16 21:00 06/23/16 20:59 06/15/16 20:12 (Flonase Juan C Spr) 1 spray BID NASAL 06/13/16 21:00 06/16/16 09:00 (Protonix) 20 mg DAILY PO 06/14/16 11:45 06/16/16 09:14 (Ativan) 1 mg Q6H PRN PO 06/15/16 15:30 06/16/16 09:14 (Ativan Inj) 1 mg Q6H PRN IM 06/15/16 15:30 A/P Problem List: (1) Mood disorder ICD Code: F39 Status: Acute (2) Seasonal allergies ICD Code: J30.2 Status: Acute (3) Hypokalemia ICD Code: E87.6 Status: Acute (4) HTN (hypertension) ICD Code: I10 Status: Acute Assessment and Plan This is a 20-year-old male patient with a past medical history which includes AAG, VSD and anxiety. The patient is currently in inpatient psychiatric center we have been consulted due to history of a AAG and vomiting on a daily basis. Attempted to evaluate patient although patient is psychotic, manic and difficult to assess. Patient reports that he has in the past and returned back to life. Patient has flight of ideas very tangential and unable to provide meaningful information. Psychosis - management per primary psychiatric team Nausea/vomiting - Zofran as needed AAG - Patient states today that he is cured - Neurology consulted. Per their note, no evidence of clinical signs or symptoms of autonomic disturbances/dysautonomia. Neuro signed off. VSD - last evaluated 2-3 years ago - recommend outpatient follow-up upon discharge Elevated BP measurement of 161/81, HR 92 - no BP recorded for this am - continue Lopressor 12.5 mg twice a day - continue to monitor - Clonidine prn with parameters Leucocytosis, resolved - WBC 12.1 -> 7.6 - possible stress related Hypokalemia, resolved - potassium 3.4 --> 3.9 - given by mouth repletion - discussed with patient importance of good po intake JUNIOR, resolved - creatinine 1.32 -> 1.17 -> 1.11 - likely due to poor po intake - resolved Mild transaminitis, resolved - AST 43 --> 55 -> 29 -> 16, ALT WNL, alk phos WNL - monitor DVT prophylaxis patient is ambulatory and low risk Patient is medically stable from hospitalist standpoint. Will sign off for now. Please reconsult if needed. Written by Ely Chauhan PA-C acting as scribe for Dr. Luna on 06/16/16 at 14:46. This note was transcribed by scribe Ely Chauhan PA-C . I, Dr. Neela Luna personally performed the history, physical exam, and medical decision making; and confirmed the accuracy of the information in the transcribed note. Authenticated by Dr. Neela Luna on 06/16/16 at 14:46. Ely Chauhan Jun 16, 2016 14:47 Neela Luna MD Jun 16, 2016 17:19
[2016-06-16 18:13] VITALS: BP 151/82; PULSE 100; RESP 18; TEMP 98.7; O2SAT 100
[2016-06-16 18:17] LABS: BLOOD, URINE NEG (NEG); GLUCOSE,URINE NEG (NEG); KETONE, URINE NEG (NEG); NITRITE,URINE NEG (NEG); PH, URINE 7.5 (5.0-8.5); SQUAMOUS EPITHELIAL CELL URINE <1 /hpf (0-5); URINE COLOR LIGHT-YELLOW (YELLW/STRAW)
[2016-06-16 18:18] LABS: COMMENT (UR) CULT NOT INDICATED; CULTURE IF INDICATED CULT NOT INDICATED
[2016-06-16] MEDS: DIVALPROEX SODIUM E.R. 500 MG TAB PO SCH (20:34)
[2016-06-16] MEDS: ARIPiprazole 10 MG TAB PO SCH (20:35)
[2016-06-16] MEDS: ALUMINUM/MAGNESIUM/SIMETH 30 ML CUP PO PRN (20:40)
[2016-06-17] MEDS: ACETAMINOPHEN 325 MG TAB PO PRN ×2 (00:34→20:12)
[2016-06-17] MEDS: ARTIFICIAL TEARS OPTH SOLN 15 ML BTL EACH EYE PRN ×3 (00:39→20:28)
[2016-06-17 06:12] VITALS: BP 128/64; PULSE 70; RESP 18; TEMP 97.4; O2SAT 100
[2016-06-17] MEDS: FLUTICASONE PROPIONATE 50 MCG/ACT 16 GM NASAL SPRAY NASAL SCH ×2 (09:00→20:27)
[2016-06-17] MEDS: PANTOPRAZOLE SOD 40 MG DELAYED RELEASE TAB PO SCH (09:20)
[2016-06-17] MEDS: METOPROLOL TARTRATE 25 MG TAB PO SCH ×2 (09:20→20:10)
[2016-06-17] MEDS: LORATADINE 10 MG TAB PO SCH (09:20)
--- NOTE | 2016-06-17 11:16 | HHI.PYPN ---
Subjective Remarks Patient seen and examined with counselor. Chart reviewed. Case discussed with nursing staff. Patient is noted to be somewhat intrusive but otherwise no real behavioral problem. On my examination today, the patient seems considerably more logical and appropriate in conversation. He does not verbalize any delusional material. He continues to tend to minimize his psychiatric symptomatology. No SI or HI voiced. Denies side effects from medications but requests that the Depakote be switched to liquid formulation as he feels like this would be easier on his stomach given his chronic nausea, and I have discussed with him the risks and benefits of this change. He additionally requests a transfer to the lower acuity 2600 unit as he does not like the milieu of the high acuity unit at this point. He does not complain of any dysuria or other physical symptoms today. Review of Systems ROS Limitations: Poor Historian Except as stated in HPI: all other systems reviewed are Neg Objective Alert: Yes [place]: Person, Place, Date Mood: Other (significantly calmer) Affect: Blunted Memory Intact: Comment (intact) Hallucinations: Other (no AVH) Delusions: No Delusion Type: Other (no delusional material elicited today) Suicidal: Ideation (No SI) Homicidal: Ideation (No HI) Insight/Judgment Poor Remarks No motor abnormalities noted. Thought process more linear today. Speech within normal limits for rate, tone and volume. Grooming and hygiene fair. Labs Test 06/16/16 06/16/16 18:00 18:52 Urine Color LIGHT-YELLOW Urine Turbidity CLEAR Urine pH 7.5 Urine Specific [place] 1.008 Urine Protein NEG mg/dL Urine Glucose (UA) NEG mg/dL Urine Ketones NEG mg/dL Urine Occult Blood NEG Urine Nitrite NEG Urine Bilirubin NEG Urine Urobilinogen LESS THAN 2.0 MG/DL Urine Leukocyte Esterase NEG Urine RBC 1 /hpf Urine WBC LESS THAN 1 /hpf Urine Squamous Epithelial <1 /hpf Cells Microscopic Urinalysis Comment CULT NOT INDICATED Valproic Acid (Depakene) Level 92 MCG/ML Labs reviewed. UA bland. No evidence of UTI. Depakote level is not suggestive of covert nonadherence. Vitals/IOs Vital Signs Date Time Temp Pulse Resp B/P Pulse Ox O2 Delivery O2 Flow Rate FiO2 06/17/16 06:12 97.4 70 18 128/64 100 Assessment & Plan Problem List: (1) Manic episode, severe with psychotic symptoms ICD Code: F30.2 (2) Use of cannabis ICD Code: F12.90 Assessment & Plan Patient seems improved today versus yesterday, but overall trajectory of his mood episode seems quite variable, and I am concerned that his current medication regimen is inadequate to provide lasting mood stabilization. I think the best option at this point is to try replacing his Abilify with an alternative antipsychotic with mood stabilizing properties. The patient reports side effects from Seroquel in the past but has never tried Zyprexa. I will order a small dose of Zyprexa at bedtime tonight, and if this is well tolerated, we will plan to cross taper Abilify to Zyprexa. I will additionally replace his Depakote ER with Depakene liquid per patient preference. Given the differential plasma levels achieved by these two formulations at equivalent doses, I will decrease the dose slightly, i.e. Depakene liquid 625mg BID, and check another Depakote level over the weekend. We will try to transfer the patient to the lower acuity unit and see if he can tolerate the less restrictive milieu. Continue other medications and care as ordered. Justification for Cont. Inpt. Medication changes in process. High risk for decompensation in a less restrictive environment pending psychiatric stabilization. Discharge Planning Pending psychiatric stabilization. Request HC Surrog/Guard Advoc?: Yes Noe Sr MD Jun 17, 2016 11:16
[2016-06-17] MEDS: ALUMINUM/MAGNESIUM/SIMETH 30 ML CUP PO PRN ×2 (11:34→17:46)
[2016-06-17] MEDS: LORazepam 1 MG TAB PO PRN (11:34)
[2016-06-17 17:50] VITALS: BP 134/85; PULSE 94; RESP 20; TEMP 98.9; O2SAT 97
[2016-06-17] MEDS: ARIPiprazole 10 MG TAB PO SCH (20:09)
[2016-06-17] MEDS: diphenhydrAMINE HCL 50 MG CAP PO PRN (20:10)
[2016-06-17] MEDS: OLANZapine 2.5 MG TAB PO SCH (20:11)
[2016-06-17] MEDS: VALPROIC ACID SYRUP 250 MG/5 ML UDC PO SCH (20:11)
[2016-06-17] MEDS: SODIUM CHLORIDE 0.65% NASAL SPRAY 45 ML BTL EACH NARE PRN (20:28)
[2016-06-18] MEDS: VALPROIC ACID SYRUP 250 MG/5 ML UDC PO SCH ×2 (09:00→22:11)
[2016-06-18] MEDS: LORATADINE 10 MG TAB PO SCH (09:09)
[2016-06-18] MEDS: FLUTICASONE PROPIONATE 50 MCG/ACT 16 GM NASAL SPRAY NASAL SCH ×2 (09:09→21:00)
[2016-06-18] MEDS: PANTOPRAZOLE SOD 40 MG DELAYED RELEASE TAB PO SCH (09:10)
[2016-06-18] MEDS: METOPROLOL TARTRATE 25 MG TAB PO SCH ×2 (09:10→22:09)
[2016-06-18] MEDS: ACETAMINOPHEN 325 MG TAB PO PRN ×2 (09:25→15:15)
[2016-06-18] MEDS: ARTIFICIAL TEARS OPTH SOLN 15 ML BTL EACH EYE PRN ×2 (15:16→22:15)
--- NOTE | 2016-06-18 15:25 | HHI.PYPN ---
Subjective Remarks Calm, pleasant and cooperative. Mom reportedly wants him to be transferred to a residential facility for 30 days, in [place]. Patient is agreeable to this. He remains on high dose mood stabilizing medication. This physician is asking the skilled nursing case manager to contact mom and dad regarding the use of Abilify Maintena. Review of Systems ROS Limitations: Clinical Condition Objective Alert: Yes [place]: Person, Place, Date Mood: Other (significantly calmer) Affect: Blunted Memory Intact: Comment (intact) Hallucinations: Other (no AVH) Delusions: No Delusion Type: Other (no delusional material elicited today) Suicidal: Ideation (No SI) Homicidal: Ideation (No HI) Insight/Judgment Impaired but improved Vitals/IOs Vital Signs Date Time Temp Pulse Resp B/P Pulse Ox O2 Delivery O2 Flow Rate FiO2 06/17/16 17:50 98.9 94 20 134/85 97 Intake and Output 06/17/16 06/17/16 06/18/16 08:00 16:00 00:00 Intake Total 480 ml Balance 480 ml Assessment & Plan Problem List: (1) Manic episode, severe with psychotic symptoms ICD Code: F30.2 (2) Use of cannabis ICD Code: F12.90 Assessment & Plan Estimated LOS: 3 days plan to present long-acting injectable medication Abilify 2 patient's parents for consideration. Justification for Cont. Inpt. Unable to care for self. Awaiting for medications to further stabilize the patient's mood. Request HC Surrog/Guard Advoc?: Yes Nishant Martinez MD Jun 18, 2016 15:25
[2016-06-18] MEDS: diphenhydrAMINE HCL 50 MG CAP PO PRN (17:05)
[2016-06-18 18:04] VITALS: BP 138/80; PULSE 99; RESP 17; TEMP 98.4
[2016-06-18] MEDS: SODIUM CHLORIDE 0.65% NASAL SPRAY 45 ML BTL EACH NARE PRN ×2 (22:08→22:17)
[2016-06-18] MEDS: OLANZapine 2.5 MG TAB PO SCH (22:09)
[2016-06-18] MEDS: ARIPiprazole 10 MG TAB PO SCH (22:10)
[2016-06-18] MEDS: LORazepam 1 MG TAB PO PRN (22:10)
[2016-06-18] MEDS: traZODone HCL 50 MG TAB PO PRN (23:28)
[2016-06-18] MEDS: ONDANSETRON ODT 4 MG TAB PO PRN (23:29)
[2016-06-19] MEDS: ALUMINUM/MAGNESIUM/SIMETH 30 ML CUP PO PRN ×2 (05:12→23:00)
[2016-06-19 05:39] VITALS: BP 138/80; PULSE 99; RESP 17; TEMP 98.4; O2SAT 98
[2016-06-19 06:07] VITALS: BP 133/62; PULSE 74; RESP 18; TEMP 97.9; O2SAT 100
[2016-06-19] MEDS: ARTIFICIAL TEARS OPTH SOLN 15 ML BTL EACH EYE PRN (09:05)
[2016-06-19] MEDS: METOPROLOL TARTRATE 25 MG TAB PO SCH ×2 (09:06→20:30)
[2016-06-19] MEDS: FLUTICASONE PROPIONATE 50 MCG/ACT 16 GM NASAL SPRAY NASAL SCH ×2 (09:06→20:34)
[2016-06-19] MEDS: ACETAMINOPHEN 325 MG TAB PO PRN (09:08)
[2016-06-19] MEDS: PANTOPRAZOLE SOD 40 MG DELAYED RELEASE TAB PO SCH (09:08)
[2016-06-19] MEDS: LORATADINE 10 MG TAB PO SCH (09:08)
[2016-06-19] MEDS: VALPROIC ACID SYRUP 250 MG/5 ML UDC PO SCH ×2 (09:08→20:31)
[2016-06-19] MEDS: LORazepam 1 MG TAB PO PRN (12:11)
--- NOTE | 2016-06-19 15:47 | HHI.PYPN ---
Subjective Remarks Patient calm, pleasant and cooperative. He remains delusional but he is easy to redirect and to work with. He is willing to go to a residential treatment facility in [place] next week. Review of Systems ROS Limitations: Clinical Condition Except as stated in HPI: all other systems reviewed are Neg Objective Alert: Yes [place]: Person, Place, Date Mood: Other (significantly calmer) Affect: Blunted Memory Intact: Comment (intact) Hallucinations: Other (no AVH) Delusions: Yes Delusion Type: Paranoid, Other (no delusional material elicited today) Suicidal: Ideation (No SI) Homicidal: Ideation (No HI) Insight/Judgment Impaired Vitals/IOs Vital Signs Date Time Temp Pulse Resp B/P Pulse Ox O2 Delivery O2 Flow Rate FiO2 06/19/16 06:07 97.9 74 18 133/62 100 Assessment & Plan Problem List: (1) Manic episode, severe with psychotic symptoms ICD Code: F30.2 (2) Use of cannabis ICD Code: F12.90 Assessment & Plan Estimated LOS: 3 days this physician believes the patient needs more time on medication in order to reach therapeutic blood levels and assure his stability. Justification for Cont. Inpt. Likely to decompensate if he is given a lesser level of care. Request HC Surrog/Guard Advoc?: Yes Nishant Martinez MD Jun 19, 2016 15:47
[2016-06-19 17:50] VITALS: BP 143/76; PULSE 113; RESP 20; TEMP 98.7; O2SAT 99
[2016-06-19] MEDS: ARIPiprazole 10 MG TAB PO SCH (20:30)
[2016-06-19] MEDS: OLANZapine 2.5 MG TAB PO SCH (20:30)
[2016-06-20 06:47] VITALS: BP 119/59; PULSE 71; RESP 15; TEMP 97.7; O2SAT 98
[2016-06-20] MEDS: VALPROIC ACID SYRUP 250 MG/5 ML UDC PO SCH ×2 (09:00→21:12)
[2016-06-20] MEDS: FLUTICASONE PROPIONATE 50 MCG/ACT 16 GM NASAL SPRAY NASAL SCH ×2 (09:00→21:00)
[2016-06-20] MEDS: METOPROLOL TARTRATE 25 MG TAB PO SCH ×2 (09:03→21:13)
[2016-06-20] MEDS: PANTOPRAZOLE SOD 40 MG DELAYED RELEASE TAB PO SCH (09:03)
[2016-06-20] MEDS: LORATADINE 10 MG TAB PO SCH (09:03)
--- NOTE | 2016-06-20 14:01 | HHI.PYPN ---
Subjective Remarks Patient was seen and case discussed with nursing. Patient has poor insight into his admission. Per nursing patient is behaving well. Patient remains mildly bizarre saying other patients could use his insurance. Denies auditory visual hallucinations Objective Alert: Yes [place]: Person, Place, Date Mood: Anxious Affect: Flat Memory Intact: Comment (intact) Hallucinations: Other (no AVH) Delusions: Yes Delusion Type: Paranoid (mild) Suicidal: Ideation (No SI) Homicidal: Ideation (No HI) Insight/Judgment Poor Labs Test 06/20/16 08:27 Valproic Acid (Depakene) Level 82 MCG/ML Vitals/IOs Vital Signs Date Time Temp Pulse Resp B/P Pulse Ox O2 Delivery O2 Flow Rate FiO2 06/20/16 06:47 97.7 71 15 119/59 98 Assessment & Plan Problem List: (1) Manic episode, severe with psychotic symptoms ICD Code: F30.2 (2) Use of cannabis ICD Code: F12.90 Assessment & Plan Continue current treatment plan Justification for Cont. Inpt. Patient will decompensate in a less restrictive setting Request HC Surrog/Guard Advoc?: Yes Hakan Shannon DO Jun 20, 2016 14:01
[2016-06-20 18:00] VITALS: BP 169/68; PULSE 110; RESP 15; TEMP 98.7; O2SAT 97
[2016-06-20] MEDS: ACETAMINOPHEN 325 MG TAB PO PRN ×2 (18:32→23:00)
[2016-06-20] MEDS: OLANZapine 2.5 MG TAB PO SCH (21:00)
[2016-06-20] MEDS: SODIUM CHLORIDE 0.65% NASAL SPRAY 45 ML BTL EACH NARE PRN (21:11)
[2016-06-20] MEDS: ARTIFICIAL TEARS OPTH SOLN 15 ML BTL EACH EYE PRN (21:11)
[2016-06-20] MEDS: ALUMINUM/MAGNESIUM/SIMETH 30 ML CUP PO PRN (21:12)
[2016-06-20] MEDS: ARIPiprazole 10 MG TAB PO SCH (21:13)
[2016-06-20] MEDS: diphenhydrAMINE HCL 50 MG CAP PO PRN (21:13)
[2016-06-20 22:00] VITALS: BP 136/64; PULSE 78; RESP 18; O2SAT 99
[2016-06-20] MEDS: LORazepam 1 MG TAB PO PRN (22:59)
[2016-06-21] MEDS: ALUMINUM/MAGNESIUM/SIMETH 30 ML CUP PO PRN (03:30)
[2016-06-21 05:30] VITALS: BP 140/77; PULSE 86; RESP 17; TEMP 98; O2SAT 97
[2016-06-21] MEDS: METOPROLOL TARTRATE 25 MG TAB PO SCH ×2 (08:18→22:01)
[2016-06-21] MEDS: PANTOPRAZOLE SOD 40 MG DELAYED RELEASE TAB PO SCH (08:18)
[2016-06-21] MEDS: LORATADINE 10 MG TAB PO SCH (08:18)
[2016-06-21] MEDS: VALPROIC ACID SYRUP 250 MG/5 ML UDC PO SCH ×2 (08:19→22:02)
[2016-06-21] MEDS: FLUTICASONE PROPIONATE 50 MCG/ACT 16 GM NASAL SPRAY NASAL SCH ×2 (08:22→21:00)
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
[2016-06-21] MEDS: ACETAMINOPHEN 325 MG TAB PO PRN (15:55)
[2016-06-21 19:22] VITALS: BP 148/73; PULSE 96; RESP 18; TEMP 98.2; O2SAT 99
[2016-06-21] MEDS: ARIPiprazole 10 MG TAB PO SCH (22:00)
[2016-06-21] MEDS: diphenhydrAMINE HCL 50 MG CAP PO PRN (22:00)
[2016-06-21] MEDS: OLANZapine 2.5 MG TAB PO SCH (22:01)
[2016-06-22] MEDS: ONDANSETRON ODT 4 MG TAB PO PRN (04:16)
[2016-06-22] MEDS: LORazepam 1 MG TAB PO PRN (04:16)
[2016-06-22 05:05] VITALS: BP 118/56; PULSE 60; RESP 17; TEMP 97.5; O2SAT 97
[2016-06-22] MEDS: PANTOPRAZOLE SOD 40 MG DELAYED RELEASE TAB PO SCH (08:53)
[2016-06-22] MEDS: LORATADINE 10 MG TAB PO SCH (08:53)
[2016-06-22] MEDS: METOPROLOL TARTRATE 25 MG TAB PO SCH ×2 (08:53→21:57)
[2016-06-22] MEDS: VALPROIC ACID SYRUP 250 MG/5 ML UDC PO SCH ×2 (08:54→21:26)
[2016-06-22] MEDS: FLUTICASONE PROPIONATE 50 MCG/ACT 16 GM NASAL SPRAY NASAL SCH ×2 (08:55→21:57)
[2016-06-22] MEDS: ACETAMINOPHEN 325 MG TAB PO PRN (12:47)
--- NOTE | 2016-06-22 17:43 | HHI.PYPN ---
Subjective Remarks No change in condition. Patient appears fairly stable and paranoid. Review of Systems ROS Limitations: Clinical Condition Objective Alert: Yes [place]: Person, Place, Date Mood: Calm Affect: Blunted Memory Intact: Comment (intact) Hallucinations: Other (no AVH) Delusions: Yes Delusion Type: Paranoid (bizarre) Suicidal: Ideation (No SI) Homicidal: Ideation (No HI) Insight/Judgment Impaired Vitals/IOs Vital Signs Date Time Temp Pulse Resp B/P Pulse Ox O2 Delivery O2 Flow Rate FiO2 06/22/16 05:05 97.5 60 17 118/56 97 Intake and Output 06/21/16 06/21/16 06/22/16 08:00 16:00 00:00 Intake Total 480 ml 360 ml Balance 480 ml 360 ml Assessment & Plan Problem List: (1) Manic episode, severe with psychotic symptoms ICD Code: F30.2 (2) Use of cannabis ICD Code: F12.90 Assessment & Plan Estimated LOS: days awaiting placement. Justification for Cont. Inpt. Likely to decompensate at lower level of care. Request HC Surrog/Guard Advoc?: Yes Nishant Martinez MD Jun 22, 2016 17:43
[2016-06-22] MEDS: OLANZapine 2.5 MG TAB PO SCH (21:24)
[2016-06-22] MEDS: ARIPiprazole 10 MG TAB PO SCH (21:24)
[2016-06-22] MEDS: traZODone HCL 50 MG TAB PO PRN (21:56)
[2016-06-22] MEDS: ALUMINUM/MAGNESIUM/SIMETH 30 ML CUP PO PRN (21:56)
[2016-06-23 06:29] VITALS: BP 111/55; PULSE 79; RESP 18; TEMP 97.9; O2SAT 97
[2016-06-23] MEDS: VALPROIC ACID SYRUP 250 MG/5 ML UDC PO SCH (09:00)
[2016-06-23] MEDS: LORATADINE 10 MG TAB PO SCH (09:00)
[2016-06-23] MEDS: PANTOPRAZOLE SOD 40 MG DELAYED RELEASE TAB PO SCH (09:00)
[2016-06-23] MEDS: FLUTICASONE PROPIONATE 50 MCG/ACT 16 GM NASAL SPRAY NASAL SCH (09:00)
[2016-06-23] MEDS: METOPROLOL TARTRATE 25 MG TAB PO SCH (09:00)
--- NOTE | 2016-06-23 10:32 | HHI.PYPN ---
Subjective Remarks Patient appears to have reached maximum hospital benefit from treatment here. He is calm and pleasant and cooperative. Any delusional thinking is at a minimum. He is tolerating his medicines quite well. Review of Systems ROS Limitations: Clinical Condition Objective Alert: Yes [place]: Person, Place, Date Mood: Calm Affect: Blunted Memory Intact: Comment (intact) Hallucinations: Other (no AVH) Delusions: Yes Delusion Type: Paranoid (bizarre) Suicidal: Ideation (No SI) Homicidal: Ideation (No HI) Insight/Judgment Impaired but adequate. Vitals/IOs Vital Signs Date Time Temp Pulse Resp B/P Pulse Ox O2 Delivery O2 Flow Rate FiO2 06/23/16 06:29 97.9 79 18 111/55 97 Assessment & Plan Problem List: (1) Manic episode, severe with psychotic symptoms ICD Code: F30.2 (2) Use of cannabis ICD Code: F12.90 Assessment & Plan Estimated LOS: 1 days we are attempting to set up patient's discharge to residential facility in [place] per parents will request Justification for Cont. Inpt. Will decompensate without appropriate discharge facility. Request HC Surrog/Guard Advoc?: Yes Nishant Martinez MD Jun 23, 2016 10:32
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
[2016-06-23] MEDS ORDERED: OLAN2.5T PO (16:24)
[2016-06-23] MEDS ORDERED: VALP250S2 PO (16:24)
== END 2016-06-23 17:45 | disposition home or self-care (01) | DRG 885 ==
LOC: NEPC 20:00 → NEDA 06-08 15:21 → H260 06-08 16:07 → H270 06-09 10:00 → H260 06-17 14:18
PROVIDERS: ADMIT Psychiatry & Neurology Psychiatry; ATTEND Psychiatry & Neurology Psychiatry
DX: F30.2 Manic episode, severe with psychotic symptoms (principal); N17.9 Acute kidney failure, unspecified; E87.6 Hypokalemia; D72.829 Elevated white blood cell count, unspecified; F41.9 Anxiety disorder, unspecified; R45.1 Restlessness and agitation; Z72.0 Tobacco use; R00.0 Tachycardia, unspecified; Z81.8 Family history of other mental and behavioral disorders; Z82.49 Family history of ischemic heart disease and other diseases of the circulatory system; R11.2 Nausea with vomiting, unspecified; Z80.1 Family history of malignant neoplasm of trachea, bronchus and lung; R74.0 Nonspecific elevation of levels of transaminase and lactic acid dehydrogenase [LDH]; J30.2 Other seasonal allergic rhinitis; I10 Essential (primary) hypertension; F12.90 Cannabis use, unspecified, uncomplicated
CPT/HCPCS: 80048; 80053; 80061; 80076; 80164; 80307; 81001; 82140; 83036; 83735; 84443; 85025; 93005; 96361; 96372; 96374; 96375; J1200; J1630; J2060; J2405; J7030; Q0163

== ENCOUNTER 2016-06-26 16:16 | Inpatient (IN) | payer OTHER ==
[~2016-06-26] VITALS: Ht 170.2 cm; Wt 75.2 kg
[~2016-06-26 16:16] MED LIST: OLAN2.5T PO; VALP250S2 PO
[2016-06-26 16:17] VITALS: BP 146/79; PULSE 114; RESP 20; TEMP 98.9; O2SAT 100
--- NOTE | 2016-06-26 16:31 | PD ---
Physical Exam Date Seen by Provider: Jun 26, 2016 Time Seen by Provider: 16:29 Narrative 20 yo male here for allergy panels. Per patient he is here to get allergy tested for his medications. No suicidal or homicidal ideation. per patient nothing is wrong with him. Parents are concerned for his psychiatric illness as he appears paranoid and defiant. No other medical complaints. He does complain of "heart pain". 07/08. Vitals sign stable. Patient awaiting bed placement. Data Data Last Documented VS Vital Signs Date Time Temp Pulse Resp B/P Pulse Ox O2 Delivery O2 Flow Rate FiO2 06/26/16 16:17 98.9 114 20 146/79 100 Room Air [facility] Medical Record Reviewed: Yes Supervised Visit with DEVYN: Jeb Noriega Jun 26, 2016 16:31
[2016-06-26 19:00] VITALS: BP 145/97; PULSE 100; RESP 18; TEMP 97.9; O2SAT 99
[2016-06-26 20:32] LABS: AUTOMATED NEUTROPHIL # 5.3 TH/MM3 (1.8-7.7); BASOPHIL % 0.3 % (0.0-2.0); EOSINOPHIL % 0.3 % (0.0-4.0); HEMATOCRIT 43.4 % (39.0-51.0); HEMO FLAGS DIFF FINAL; LYMPH % 16.4 % (9.0-44.0); LYMPHOCYTE # 1.2 TH/MM3 (1.0-4.8); MEAN CORPUSCULAR HEMOGLOBIN 30.8 PG (27.0-34.0); MEAN CORPUSCULAR HGB CONC 33.9 % (32.0-36.0); MONO % 9.4 % (0.0-8.0); NEUT % 73.6 % (16.0-70.0); PLATELET COUNT 234 TH/MM3 (150-450); RED BLOOD COUNT 4.77 MIL/MM3 (4.50-5.90); WHITE BLOOD COUNT 7.2 TH/MM3 (4.0-11.0)
[2016-06-26 20:44] LABS: AMPHETAMINE, URINE NEG (NEG); ANION GAP 5 MEQ/L (5-15); AST (GOT) 16 U/L (15-37); BARBITURATES, URINE NEG (NEG); BLOOD UREA NITROGEN 14 MG/DL (7-18); CHLORIDE 102 MEQ/L (98-107); COCAINE, URINE NEG (NEG); GLOMERULAR FILTRATION RATE 92 ML/MIN (>89); POTASSIUM 3.6 MEQ/L (3.5-5.1); SODIUM (NA) 137 MEQ/L (136-145)
[2016-06-26 20:47] LABS: ALKALINE PHOSPHATASE 85 U/L (45-117); ALT (GPT) 22 U/L (12-78); TOTAL BILIRUBIN ADULT 0.7 MG/DL (0.2-1.0)
[2016-06-26] MEDS ORDERED: HALOPERIDOL LACTATE 5 MG/ML AMP IM ONE (21:00)
[2016-06-26] MEDS ORDERED: LORazepam 2 MG/ML VIAL IM ONE (21:00)
[2016-06-26] MEDS ORDERED: diphenhydrAMINE HCL 50 MG/ML VIAL IM ONE (21:00)
--- NOTE | 2016-06-26 21:29 | PD ---
HPI Chief Complaint: Psychiatric Symptoms Time Seen by Provider: 21:29 Travel History International Travel<30 days: No Contact w/Intl Traveler<30days: No Traveled to known affect area: No History of Present Illness HPI 20-year-old male with history of anxiety, bipolar, psychotic episode presents to the ED for evaluation. Patient was placed under Springer act by the psych screener on arrival. According to verify work the patient believes that the devil is Erin Leiva and that he has frozen him in a necklace. He is also religiously preoccupied and leaves the devil gave him nearsighted vision. On my evaluation the patient is quite animated, tells me that he knows sign language and is able to play the piano by ear instantly, as if it's a gift from God. He also states that there are 2 endings to the Bible and that only he knows which one is real. He claims that he has been feeling well lately. He denies headaches or dizziness, chest pain, shortness of breath, abdominal pain, nausea or vomiting. He endorses eating and drinking regularly. Endorses sleeping 8 hours a night. He states that he takes several supplements but doesn 't like to take medicine because it's poison. He denies illicit drugs, alcohol or cigarette smoking. PFSH Past Medical History Autoimmune Disease: Yes Anxiety: Yes Depression: No Cancer: No (per mother) Cardiovascular Problems: Yes (VSD per mother) Diabetes: No Patient Takes Glucophage: No Endocrine: No Genitourinary: No Headaches: Yes Immune Disorder: Yes Musculoskeletal: No Neurologic: No Psychiatric: Yes Respiratory: No Immunizations Current: Yes Seizures: No (per mother) Tetanus Vaccination: Unknown Influenza Vaccination: No Past Surgical History Other Surgery: Yes Social History Alcohol Use: No Tobacco Use: Yes Substance Use: No Allergies-Medications (Allergen,Severity, Reaction): Coded Allergies: No Known Allergies (Unverified , 06/07/16) Reported Meds & Prescriptions Reported Meds & Active Scripts Active Valproic Acid Liq 250 Mg/5 Ml Syp 625 Mg PO BID 30 Days Olanzapine 2.5 Mg Tab 2.5 Mg PO HS Review of Systems Except as stated in HPI: all other systems reviewed are Neg Physical Exam Narrative GENERAL: Well-nourished, well-developed white male in no acute distress. PSYCHIATRIC: Delusional thought processes. Pressured speech. Intense eye contact. SKIN: Focused skin assessment warm/dry. Patient has a light sunburn over the abdomen, chest, back and lower extremities. HEAD: Normocephalic. EYES: No scleral icterus. No injection or drainage. NECK: Supple, trachea midline. No JVD or lymphadenopathy. CARDIOVASCULAR: Regular rate and rhythm without murmurs, gallops, or rubs. RESPIRATORY: Breath sounds clear and equal bilaterally. No accessory muscle use. GASTROINTESTINAL: Abdomen soft, non-tender, nondistended. Active bowel sounds. MUSCULOSKELETAL: No cyanosis, or edema. 2+ DP pulses. BACK: Nontender without obvious deformity. No CVA tenderness. Data Data Last Documented VS Vital Signs Date Time Temp Pulse Resp B/P Pulse Ox O2 Delivery O2 Flow Rate FiO2 06/26/16 19:00 97.9 100 18 145/97 99 Room Air Orders Complete Blood Count With Diff (06/26/16 19:46) Comprehensive Metabolic Panel (06/26/16 19:46) Valproic Acid (Depakene) (06/26/16 19:46) Psych Screen (06/26/16 19:46) Drug Screen, Random Urine (06/26/16 19:46) Haloperidol Inj (Haldol Inj) (06/26/16 21:00) Lorazepam Inj (Ativan Inj) (06/26/16 21:00) Diphenhydramine Inj (Benadryl Inj) (06/26/16 21:00) Labs Laboratory Tests Test 06/26/16 19:30 White Blood Count 7.2 TH/MM3 Red Blood Count 4.77 MIL/MM3 Hemoglobin 14.7 GM/DL Hematocrit 43.4 % Mean Corpuscular Volume 91.0 FL Mean Corpuscular Hemoglobin 30.8 PG Mean Corpuscular Hemoglobin 33.9 % Concent Red Cell Distribution Width 14.0 % Platelet Count 234 TH/MM3 Mean Platelet Volume 9.8 FL Neutrophils (%) (Auto) 73.6 % Lymphocytes (%) (Auto) 16.4 % Monocytes (%) (Auto) 9.4 % Eosinophils (%) (Auto) 0.3 % Basophils (%) (Auto) 0.3 % Neutrophils # (Auto) 5.3 TH/MM3 Lymphocytes # (Auto) 1.2 TH/MM3 Monocytes # (Auto) 0.7 TH/MM3 Eosinophils # (Auto) 0.0 TH/MM3 Basophils # (Auto) 0.0 TH/MM3 CBC Comment DIFF FINAL Differential Comment Sodium Level 137 MEQ/L Potassium Level 3.6 MEQ/L Chloride Level 102 MEQ/L Carbon Dioxide Level 30.0 MEQ/L Anion Gap 5 MEQ/L Blood Urea Nitrogen 14 MG/DL Creatinine 1.01 MG/DL Estimat Glomerular Filtration 92 ML/MIN Rate Random Glucose 118 MG/DL Calcium Level 8.8 MG/DL Total Bilirubin 0.7 MG/DL Aspartate Amino Transf 16 U/L (AST/SGOT) Alanine Aminotransferase 22 U/L (ALT/SGPT) Alkaline Phosphatase 85 U/L Total Protein 7.7 GM/DL Albumin 4.1 GM/DL Urine Opiates Screen NEG Urine Barbiturates Screen NEG Valproic Acid (Depakene) Level 65 MCG/ML Urine Amphetamines Screen NEG Urine Benzodiazepines Screen NEG Urine Cocaine Screen NEG Urine Cannabinoids Screen POS MDM Medical Decision Making Medical Screen Exam Complete: Yes Emergency Medical Condition: Yes Differential Diagnosis Adjustment disorder versus anxiety versus bipolar versus depression versus dementia versus electrolyte disorder versus malingering versus mood disorder versus ODD versus psychosis versus PTSD versus schizophrenia versus schizoaffective disorder versus substance-induced mood disorder versus other Narrative Course 20-year-old male with history of anxiety, bipolar, psychotic episode presents to the ED for evaluation. Patient was placed under Sprinegr act by the psych screener on arrival. According to verify work the patient believes that the devil is Erin Leiva and that he has frozen him in a necklace. He is also religiously preoccupied and leaves the devil gave him nearsighted vision. On my evaluation the patient is quite animated, tells me that he knows sign language and is able to play the piano by ear instantly, as if it's a gift from God. He also states that there are 2 endings to the Bible and that only he knows which one is real. He claims that he has been feeling well lately. He denies headaches or dizziness, chest pain, shortness of breath, abdominal pain, nausea or vomiting. He endorses eating and drinking regularly. He endorses sleeping 8 hours a night. He states that he takes several supplements but doesn 't like to take medicine because it's poison. He denies illicit drugs, alcohol or cigarette smoking. Vitals reviewed. Patient's tachycardic on presentation. Physical exam reveals an anxious, animated white male in no acute distress. He has a lesion on top processes, pressured speech and intense eye contact. Chest clear to auscultation bilaterally, abdomen soft, nontender. No CVA tenderness. No swelling in bilateral lower extremities. Labwork unremarkable, toxic screen positive for cannabinoids. Patient was administered 5 mg Haldol, Benadryl and 2 mg Versed IV. He is medically clear for psychiatric evaluation. Please see segments for disposition. Elizabeth Gaona Jun 26, 2016 21:29
[2016-06-26 22:00] VITALS: BP 117/68; PULSE 97; RESP 18
[2016-06-27 02:07] VITALS: BP 155/88; PULSE 94; RESP 19; O2SAT 97
[2016-06-27 06:09] VITALS: BP 119/57; PULSE 73; RESP 18; O2SAT 99
[2016-06-27] MEDS ORDERED: LORazepam 2 MG/ML VIAL - age > 65 yrs IM PRN (08:30)
[2016-06-27] MEDS ORDERED: LORazepam 0.5 MG TAB age > 65 yrs PO PRN (08:30)
[2016-06-27] MEDS ORDERED: LORazepam 2 MG/ML VIAL IM PRN (08:30)
[2016-06-27] MEDS ORDERED: MAGNESIUM HYDROXIDE SUSP 30 ML CUP PO PRN (08:30)
[2016-06-27] MEDS: NICOTINE 21 MG/24 HR PATCH T-DERMAL SCH (09:00)
[2016-06-27] MEDS: OLANZapine 5 MG TAB PO SCH ×2 (09:00→21:18)
[2016-06-27] MEDS: DIVALPROEX DR 500 MG TABEC PO SCH ×2 (09:00→21:18)
[2016-06-27 10:30] VITALS: BP 149/70; PULSE 105; RESP 20; TEMP 98.2; O2SAT 100
[2016-06-27] MEDS: ACETAMINOPHEN 325 MG TAB PO PRN (16:15)
[2016-06-27 18:23] VITALS: BP 153/71; PULSE 87; RESP 18; TEMP 98.8; O2SAT 98
[2016-06-27] MEDS: REMOVE OLD NICOTINE PATCH T-DERMAL SCH (21:00)
[2016-06-27] MEDS: LORazepam 1 MG TAB PO PRN (21:18)
[2016-06-28 05:38] VITALS: BP 112/61; PULSE 66; RESP 17; TEMP 97.7; O2SAT 100
[2016-06-28] MEDS: DIVALPROEX DR 500 MG TABEC PO SCH ×2 (08:49→20:31)
[2016-06-28] MEDS: OLANZapine 5 MG TAB PO SCH ×2 (08:49→20:32)
[2016-06-28] MEDS: NICOTINE 21 MG/24 HR PATCH T-DERMAL SCH (08:50)
[2016-06-28 17:58] VITALS: BP 122/67; PULSE 116; RESP 18; TEMP 98.4; O2SAT 99
--- NOTE | 2016-06-28 18:06 | HHI.HP ---
Provisional Diagnosis Admission Date Jun 27, 2016 at 08:00 [place] I. Unspecified psychosis, R/O schizoaffective disorder, R/O schizophrenia, R/O bipolar disorder, manic episode with psychosis [place] II. Deferred [place] III. No significant medical history Certification of Person's Competence To Provide Express and Informed Consent I have personally examined Bruce Weaver , a person being served at [facility] on, Jun 28, 2016 17:51. Express and informed consent means consent voluntarily given in writing, by a competent person, after sufficient explanation and disclosure of the subject matter involved to enable the person to make a knowing and willful decision without any element of force, fraud, deceit, duress, or other form of constraint or coercion. This person is 18 years of age or older, is not now known to be incompetent to consent to treatment with a guardian advocate, and does not have a health care surrogate or proxy currently making medical treatment decisions. I have found this person to be one of the following: [] Competent to provide express and informed consent, as defined above, for voluntary admission to this facility and is competent to provide express and informed consent for treatment. He/she has the consistent capacity to make well reasoned, willful, and knowing decisions concerning his or her medical or mental health treatment. The person fully and consistently understands the purpose of the admission for examination/placement and is fully capable of personally exercising all rights assured [place] [] Incompetent to provide express and informed consent to voluntary admission, and this is incompetent to provide express and informed consent to treatment. The person must be transferred to involuntary status and a petition for a guardian advocate filed with the Circuit Court. [X] Refusing to provide express and informed consent to voluntary admission but is competent to provide express and informed consent for treatment. The person must be discharged or transferred to involuntary status. Form shall be completed within 24 hours of a person's arrival at the receiving facility and filed in the clinical record of each person: 1. Admitted on a voluntary basis 2. Permitted to provide express and informed consent to his/her own treatment 3. Allowed to transfer from involuntary to voluntary status 4. Prior to permitting a person to consent to his or her own treatment after having been previously found incompetent to consent to treatment. History of Present Illness Capacity: Lacks Capacity HPI The patient is a 20-year-old man, domicile with parents, works for [employer], with psychiatric history of psychosis, recent hospitalization here at [place], [place] in June 08, 2016, documentation was reviewed, no significant medical history, who presents to the ED for evaluation. Patient was placed under Springer act by the psych screener on arrival. According to verify work the patient believes that the devil is Erin Leiva and that he has frozen him in a necklace. He is also religiously preoccupied and leaves the devil gave him nearsighted vision. Er note : "On my evaluation the patient is quite animated, tells me that he knows sign language and is able to play the piano by ear instantly, as if it's a gift from God. He also states that there are 2 endings to the Bible and that only he knows which one is real. He claims that he has been feeling well lately". On psychiatric evaluation today patient is found in the patio playing Basket, he is calm and cooperative. Patient says that he was waiting to talk to me "because I am ready to be discharged and go to play golf with my friends". Patient says that "god, ala, have the control of your my and my mind and they will direct you to do the correct thing for me" . 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 "But my goal is to become a cardiovascular surgery". 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 Patient denies depressive symptoms, he described his mood as very happy and energetic, denies suicidal or homicidal ideation, denies visual and auditory hallucinations. He she is quite paranoid, he is stays that he doesn't trust medications and he doesn't trust people in this place. He says that he doesn't need to take medications, "all I need is vitamin 12 and folate". He reports daily use of marijuana, denies use of other illicit drugs, denies the use of alcohol. Review of Systems Constitutional: DENIES: Diaphoretic episodes, Fatigue, Fever, Weight gain, Weight loss, Chills, Dizziness, Change in appetite, Night Sweats Endocrine: DENIES: Heat/cold intolerance, Polydipsia, Polyuria, Polyphagia Eyes: DENIES: Blurred vision, Diplopia, Eye inflammation, Eye pain, Vision loss , Photosensitivity, Double Vision Ears, nose, mouth, throat: DENIES: Tinnitus, Hearing loss, Vertigo, Nasal discharge, Oral lesions, Throat pain, Hoarseness, Ear Pain, Running Nose, Epistaxis, Sinus Pain, Toothache, Odynophagia Respiratory: DENIES: Apneas, Cough, Snoring, Wheezing, Hemoptysis, Sputum production, Shortness of breath Cardiovascular: DENIES: Chest pain, Palpitations, Syncope, Dyspnea on Exertion , PND, Lower Extremity Edema, Orthopnea, Claudication Gastrointestinal: DENIES: Abdominal pain, Black stools, Bloody stools, Constipation, Diarrhea, Nausea, Vomiting, Difficulty Swallowing, Anorexia Genitourinary: DENIES: Sexual dysfunction, Urinary frequency, Urinary incontinence, Urgency, Hematuria, Dysuria, Nocturia, Penile Discharge, Testicular Pain, Testicular Swelling Integumentary: DENIES: Abnormal pigmentation, Nail changes, Pruritus, Rash Hematologic/lymphatic: DENIES: Bruising, Lymphadenopathy Immunologic/allergic: DENIES: Eczema, Urticaria Neurologic: DENIES: Abnormal gait, Headache, Localized weakness, Paresthesias, Seizures, Speech Problems, Tremor, Poor Balance Psychiatric: COMPLAINS OF: Mood changes, Agitation, Delusions, DENIES: Anxiety , Confusion, Depression, Hallucinations, Suicidal Ideation, Homicidal Ideation Past Psych History Violence risk - self (6 mos) Elevated Substance Abuse History Drugs/Alcohol past 12 months Reports daily use of marijuana Past Family Social History Coded Allergies: No Known Allergies (Unverified , 06/07/16) Active Scripts Valproic Acid Liq 250 Mg/5 Ml [id number] Mg PO BID 30 Days Prov:Nishant Martinez MD 06/23/16 Olanzapine 2.5 Mg Tab2.5 Mg PO HS #30 TAB Prov:Nishant Martinez MD 06/23/16 Current Medications Medications (Trade) Dose Ordered Sig/Joshua Route Start Time Stop Time Status Last Admin (Habitrol 21 Mg Patch.24 Hr) 1 patch DAILY T-DERMAL 06/27/16 09:00 Miscellaneous Information 1 HS T-DERMAL 06/27/16 21:00 (Ativan) 1 mg Q6H PRN PO 06/27/16 08:30 06/27/16 21:18 (Ativan Inj) 1 mg Q6H PRN IM 06/27/16 08:30 (Ativan) 0.5 mg Q12H PRN PO 06/27/16 08:30 (Ativan Inj) 0.5 mg Q12H PRN IM 06/27/16 08:30 (Tylenol) 650 mg Q4H PRN PO 06/27/16 08:30 06/27/16 16:15 (Milk Of Magnesia Liq) 30 ml DAILY PRN PO 06/27/16 08:30 (Mag-Al Plus Susp Liq) 30 ml Q6H PRN PO 06/27/16 08:30 (ZyPREXA) 5 mg BID PO 06/27/16 09:00 06/28/16 08:49 (Depakote Dr) 500 mg BID PO 06/27/16 09:00 06/28/16 08:49 Family History Patient says that his mother is bipolar Social History Patient was born in [facility], he lives alone in [place], he is single, he reports that he works for [employer], his highest level of education is high school Patient's Strengths (min. 2) Family support Physical Exam Patient is restless, psychomotor agitated, but no EPS, no tremors, no stiffness , present Vital Signs Vital Signs Date Time Temp Pulse Resp B/P Pulse Ox O2 Delivery O2 Flow Rate FiO2 06/28/16 05:38 97.7 66 17 112/61 100 06/27/16 02:07 Room Air Lab Results Toxicology is positive for cannabis, BAL was negative Valproic acid levels 65 Mental Status Examination Appearance man, regular street clothes, good hygiene, restless, but cooperative Speech: Pressured, Rapid Orientation: x3 Memory: Unremarkable Thought Process: Loose Association, Tangential Hallucination Type: None Attention and Concentration: Abnormal Suicidal Ideation: No Previous Suicide Attempts: No Homicidal Ideation: No Previous Homicide Attempts: No Insight: Poor Judgment: Poor Affect: Irritable Mood: Angry, Irritable Motor Activity: Normal gait Assessment & Plan Problem List: (1) Bipolar 1 disorder Assessment & Plan: With psychiatric evaluation patient is acutely manic, disorganized, talkative, restless, disorganized with marked grandeur and paranoid delusions. Patient has a very poor insight of his mental condition. Patient definitely might represent an acute danger to self and others due to the level of psychosis. He needs psychiatric admission for stabilization and safety. Will restart medication in which he was discharged from the hospital, Depakote 500 mg twice a day and olanzapine 5 mg twice a day. Collateral information this is still pending. Psychiatry will be consulted for second opinion. Appropriate safety measures. fat pressroom worker intervention for psychosocial assessment, collateral, counseling, start this to planning. Extensive psycho education, supportive motivation provided. ICD Code: F31.9 Assessment & Plan Estimated LOS: days Lincoln Gilbert MD Jun 28, 2016 18:05
[2016-06-28] MEDS: ARTIFICIAL TEARS OPTH SOLN 15 ML BTL EACH EYE PRN (18:16)
[2016-06-28] MEDS: SODIUM CHLORIDE 0.65% NASAL SPRAY 45 ML BTL NASAL PRN (18:16)
[2016-06-28] MEDS: LORazepam 1 MG TAB PO PRN (18:48)
[2016-06-28 18:49] VITALS: PULSE 104
[2016-06-28] MEDS: REMOVE OLD NICOTINE PATCH T-DERMAL SCH (20:32)
[2016-06-29 06:16] VITALS: BP 124/51; PULSE 86; RESP 18; TEMP 97; O2SAT 100
[2016-06-29] MEDS: DIVALPROEX DR 500 MG TABEC PO SCH ×2 (09:00→21:11)
[2016-06-29] MEDS: OLANZapine 5 MG TAB PO SCH (09:00)
[2016-06-29] MEDS: NICOTINE 21 MG/24 HR PATCH T-DERMAL SCH (09:00)
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
[2016-06-29 17:23] VITALS: BP 148/71; PULSE 99; RESP 18; TEMP 98.1; O2SAT 100
[2016-06-29 20:13] VITALS: BP 150/70; PULSE 91; RESP 18; TEMP 97.7; O2SAT 98
[2016-06-29] MEDS ORDERED: diphenhydrAMINE HCL 50 MG CAP PO PRN (20:45)
[2016-06-29] MEDS: REMOVE OLD NICOTINE PATCH T-DERMAL SCH (21:00)
[2016-06-29] MEDS: OLANZapine 10 MG TAB PO SCH (21:00)
[2016-06-29] MEDS: SODIUM CHLORIDE 0.65% NASAL SPRAY 45 ML BTL NASAL PRN (21:11)
[2016-06-29] MEDS: diphenhydrAMINE HCL 50 MG CAP PO PRN (21:11)
[2016-06-29] MEDS: ARTIFICIAL TEARS OPTH SOLN 15 ML BTL EACH EYE PRN (21:11)
[2016-06-29] MEDS: LORazepam 1 MG TAB PO PRN (22:16)
[2016-06-29] MEDS: ACETAMINOPHEN 325 MG TAB PO PRN (22:16)
[2016-06-30 05:50] VITALS: BP 142/75; PULSE 72; RESP 18; TEMP 98; O2SAT 100
[2016-06-30] MEDS: NICOTINE 21 MG/24 HR PATCH T-DERMAL SCH (09:00)
[2016-06-30] MEDS: DIVALPROEX DR 500 MG TABEC PO SCH ×2 (09:31→20:18)
[2016-06-30] MEDS: OLANZapine 5 MG TAB PO SCH (09:31)
--- NOTE | 2016-06-30 09:38 | HHI.PYPN ---
Subjective Remarks Patient seen and examined with counselor and nurse. Chart reviewed. Case discussed with nursing staff, counselor and recreation therapist in treatment team. Nursing staff reports that the patient remains religiously preoccupied and bizarre. On my examination today, the patient presents with elevated mood. He makes a concerted effort to minimize his psychiatric symptomatology, but is unable to do so as a consequence of his decompensated mental illness. He remains discharge focused. He finally insists that he is "only visiting [on the unit]. I only came back so everyone can get out." He then crosses his forearms over his chest because he says this is the sign for "my family, lis durand." He accosts me later on my rounds with a hospital pyjama jacket thrown over his shoulder and says, "don't cramp my style. I got my clothes because I'm leaving." He then insists on shaking my hand, but instead of the usual motion he twists his hand at the wrist, puneet to how you use a screwdriver. Denies side effects from medications. No physical complaints. Review of Systems ROS Limitations: Psychotic, Poor Historian Except as stated in HPI: all other systems reviewed are Neg Objective Alert: Yes [place]: Person, Place Mood: Anxious, Other (elevated) Affect: Other (expansive) Memory Intact: Comment (Psychosis interferes) Hallucinations: Auditory (Remains int stim) Delusions: Yes Delusion Type: Grandiose, Paranoid Suicidal: Ideation (No SI but unreliable to contract for safety.) Homicidal: Ideation (No HI) Insight/Judgment Poor Remarks No motor abnormalities noted. Thought process somewhat disorganized. Speech remains stilted and rambling. Grooming and hygiene fair. Labs Labs reviewed. Vitals/IOs Vital Signs Date Time Temp Pulse Resp B/P Pulse Ox O2 Delivery O2 Flow Rate FiO2 06/30/16 05:50 98.0 72 18 142/75 100 06/27/16 02:07 Room Air Assessment & Plan Problem List: (1) Bipolar disorder ICD Code: F31.9 (2) Cannabis abuse ICD Code: F12.10 Assessment & Plan Continue to titrate Zyprexa for mood stabilization and psychosis. Patient will receive 15 mg Zyprexa total daily dose today with plans for 20 mg tomorrow. Continue Depakote as ordered. Depakote and ammonia level ordered for tomorrow. Plan to adjust Depakote dose based on the level as patient remains symptomatic. I will add Ambien as needed for sleep as nursing reports that the patient was struggling to get to sleep last night. Continue to monitor on the high acuity unit. Escape precautions. Continue other medications and care as ordered. Justification for Cont. Inpt. Impairment in reality construction. Medication changes in process. High risk for decompensation in a restrictive environment. Discharge Planning Plan remains for residential care once psychiatrically stabilized. Request HC Surrog/Guard Advoc?: Yes Problem Qualifiers (1) Bipolar disorder: Qualified Code: F31.2 - Bipolar affective disorder, currently manic, severe, with psychotic features Noe Sr MD June 30, 2016 09:38
[2016-06-30 18:20] VITALS: BP 149/66; PULSE 119; RESP 18; TEMP 97.6; O2SAT 99
[2016-06-30] MEDS: diphenhydrAMINE HCL 50 MG CAP PO PRN (20:17)
[2016-06-30] MEDS: SODIUM CHLORIDE 0.65% NASAL SPRAY 45 ML BTL NASAL PRN (20:17)
[2016-06-30] MEDS: ARTIFICIAL TEARS OPTH SOLN 15 ML BTL EACH EYE PRN (20:18)
[2016-06-30] MEDS: OLANZapine 10 MG TAB PO SCH (20:18)
[2016-06-30] MEDS: REMOVE OLD NICOTINE PATCH T-DERMAL SCH (20:19)
[2016-06-30] MEDS: ZOLPIDEM TARTRATE 5 MG TAB PO PRN (22:16)
[2016-06-30] MEDS: ACETAMINOPHEN 325 MG TAB PO PRN (22:19)
[2016-07-01] MEDS: LORazepam 1 MG TAB PO PRN ×2 (03:14→17:58)
[2016-07-01 06:14] VITALS: BP 170/72; PULSE 82; RESP 18; TEMP 97.3; O2SAT 100
[2016-07-01] MEDS: NICOTINE 21 MG/24 HR PATCH T-DERMAL SCH (08:35)
[2016-07-01] MEDS: DIVALPROEX DR 500 MG TABEC PO SCH (08:35)
[2016-07-01] MEDS: OLANZapine 5 MG TAB PO SCH (08:35)
[2016-07-01] MEDS: VALPROIC ACID SYRUP 250 MG/5 ML UDC PO SCH ×2 (11:40→21:11)
--- NOTE | 2016-07-01 11:40 | HHI.PYPN ---
Subjective Remarks Patient seen and examined. Chart reviewed. Case discussed with RN who reports that the patient remains bizarre with flight of ideas. He reportedly proposed marriage to the RN. He fixates on numbers. On my examination today, patient minimizes his current psychiatric symptomatology. Affect is growing more dysphoric. He is internally preoccupied. He insists, "I had the most profound sleep." We discuss his medications, and he says, "Depakote levels are awful. The only thing I need is the yellow pill. Honestly, what I really need is Herbalife." Denies side effects from medications. He would like to return to liquid valproate if possible as he tolerates this better than the pills. Review of Systems ROS Limitations: Psychotic, Poor Historian Except as stated in HPI: all other systems reviewed are Neg Objective Alert: Yes [place]: Person, Place Mood: Other (growing more dysphoric) Affect: Restricted Memory Intact: Comment (Not assessed) Hallucinations: Auditory (Again int stim) Delusions: Yes Delusion Type: Paranoid Suicidal: Ideation (No SI) Homicidal: Ideation (No HI) Insight/Judgment Poor Remarks No motor abnormalities noted. TP with ongoing loosening of associations. Speech rambling. Labs Test 07/01/16 07/01/16 06:40 06:45 Valproic Acid (Depakene) Level 29 MCG/ML Ammonia 24 MCMOL/L Labs reviewed. Vitals/IOs Vital Signs Date Time Temp Pulse Resp B/P Pulse Ox O2 Delivery O2 Flow Rate FiO2 07/01/16 06:14 97.3 82 18 170/72 100 Assessment & Plan Problem List: (1) Bipolar disorder ICD Code: F31.9 (2) Cannabis abuse ICD Code: F12.10 Assessment & Plan Change valproate to Depakene liquid and titrate dose to 625mg BID, which previously put pt into therapeutic range. Plan to recheck a Depakote level after appropriate interval. I will titrate Zyprexa to 5/15mg and replace standard tabs with ODT Zydis for better tolerability. Continue to monitor on high acuity unit. Continue other meds and care as ordered. Justification for Cont. Inpt. Impairment in reality construction. Medication changes in process. High risk for decompensation in a restrictive environment. Discharge Planning Pending psychiatric stabilization. Request HC Surrog/Guard Advoc?: Yes Problem Qualifiers (1) Bipolar disorder: Qualified Code: F31.2 - Bipolar affective disorder, currently manic, severe, with psychotic features Noe Sr MD July 01, 2016 11:40
[2016-07-01 18:16] VITALS: BP 137/76; PULSE 104; RESP 16; TEMP 98.2; O2SAT 100
[2016-07-01] MEDS: SODIUM CHLORIDE 0.65% NASAL SPRAY 45 ML BTL NASAL PRN (18:21)
[2016-07-01] MEDS: ARTIFICIAL TEARS OPTH SOLN 15 ML BTL EACH EYE PRN (18:21)
[2016-07-01] MEDS: ACETAMINOPHEN 325 MG TAB PO PRN (18:24)
[2016-07-01] MEDS ORDERED: OLANZapine ODT 15 MG TAB PO SCH (21:00)
[2016-07-01] MEDS: ZOLPIDEM TARTRATE 5 MG TAB PO PRN (22:12)
[2016-07-02 05:20] VITALS: BP 161/99; PULSE 130; RESP 18; TEMP 97.6; O2SAT 98
[2016-07-02 10:00] VITALS: BP 149/63; PULSE 95; RESP 18; TEMP 98.2; O2SAT 63
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
[2016-07-02] MEDS: OLANZapine ODT 5 MG TAB PO SCH (11:25)
[2016-07-02] MEDS: VALPROIC ACID SYRUP 250 MG/5 ML UDC PO SCH ×2 (11:26→21:05)
[2016-07-02] MEDS: ALUMINUM/MAGNESIUM/SIMETH 30 ML CUP PO PRN (11:31)
[2016-07-02 16:00] VITALS: BP 128/63; PULSE 91; RESP 18; TEMP 98.4; O2SAT 98
[2016-07-02] MEDS: ARTIFICIAL TEARS OPTH SOLN 15 ML BTL EACH EYE PRN (16:47)
[2016-07-02] MEDS: ARTIFICIAL TEARS OPTH SOLN 15 ML BTL EACH EYE SCH ×2 (16:48→21:16)
[2016-07-02] MEDS: OLANZapine ODT 20 MG TAB PO SCH (21:00)
[2016-07-02] MEDS: ZOLPIDEM TARTRATE 5 MG TAB PO PRN (22:32)
[2016-07-03] MEDS: LORazepam 1 MG TAB PO PRN (06:26)
[2016-07-03 06:35] VITALS: BP 119/60; PULSE 76; RESP 18; TEMP 97.5; O2SAT 99
[2016-07-03] MEDS: ARTIFICIAL TEARS OPTH SOLN 15 ML BTL EACH EYE SCH ×4 (09:00→20:53)
--- NOTE | 2016-07-03 09:06 | HHI.PYPN ---
Subjective Remarks Patient seen and examined with counselor. Chart reviewed. Case discussed with nursing staff. On my examination today, the patient presents a more linear in his thought process. He is somewhat superficial and tends to minimize symptomatology. He tells me that the "only reason I came back [to the hospital ] is for an allergen panel." He says, "my body is like a scientology, I'm just visiting. I'm having a great time here. I'm doing the whole shebang." Denies side effects from medications. Review of Systems ROS Limitations: Poor Historian Except as stated in HPI: all other systems reviewed are Neg Objective Alert: Yes [place]: Person, Place Mood: Calm Affect: Blunted Memory Intact: Comment (Not assessed) Hallucinations: Auditory (Remains somewhat int stim) Delusions: Yes Delusion Type: Paranoid Suicidal: Ideation (No SI) Homicidal: Ideation (No HI) Insight/Judgment Poor Remarks No motor abnormalities noted. TP seems more linear and speech is more organized. Grooming/hygiene fair. Labs Labs reviewed. No new labs. Vitals/IOs Vital Signs Date Time Temp Pulse Resp B/P Pulse Ox O2 Delivery O2 Flow Rate FiO2 07/03/16 06:35 97.5 76 18 119/60 99 Assessment & Plan Problem List: (1) Bipolar disorder ICD Code: F31.9 (2) Cannabis abuse ICD Code: F12.10 Assessment & Plan Titrate Zyprexa over the weekend to 10/20 mg. Continue Depakote as ordered with plans to check a Depakote level over the weekend. Into new to monitor on high acuity inpatient unit. Continue other medications and care as ordered. Justification for Cont. Inpt. Impairment in reality construction. Med changes in process. High risk for decompensation in a less restrictive environment. Discharge Planning Pending psychiatric stabilization. Plan is currently for residential care following acute stabilization hospitalization. Request HC Surrog/Guard Advoc?: Yes Problem Qualifiers (1) Bipolar disorder: Qualified Code: F31.2 - Bipolar affective disorder, currently manic, severe, with psychotic features Noe Sr MD July 03, 2016 09:06
[2016-07-03] MEDS: ARTIFICIAL TEARS OPTH SOLN 15 ML BTL EACH EYE PRN (09:15)
[2016-07-03] MEDS: OLANZapine ODT 5 MG TAB PO SCH (09:17)
[2016-07-03] MEDS: VALPROIC ACID SYRUP 250 MG/5 ML UDC PO SCH ×2 (09:17→20:54)
[2016-07-03 18:07] VITALS: BP 128/59; PULSE 79; RESP 18; TEMP 97.9; O2SAT 98
[2016-07-03] MEDS: OLANZapine ODT 20 MG TAB PO SCH (20:53)
[2016-07-03] MEDS: ZOLPIDEM TARTRATE 5 MG TAB PO PRN (21:56)
[2016-07-04 06:00] VITALS: BP 109/55; PULSE 65; RESP 18; TEMP 97.3; O2SAT 99
[2016-07-04] MEDS: OLANZapine ODT 10 MG TAB PO SCH (09:00)
[2016-07-04] MEDS: ARTIFICIAL TEARS OPTH SOLN 15 ML BTL EACH EYE SCH ×4 (09:00→20:54)
[2016-07-04] MEDS: VALPROIC ACID SYRUP 250 MG/5 ML UDC PO SCH ×2 (09:00→20:55)
--- NOTE | 2016-07-04 14:21 | HHI.PYPN ---
Subjective Remarks Patient was seen and case discussed with nursing. Patient remains intrusive and religiously preoccupied. Flat affect, disorganized thought process. However he denies auditory or visual hallucinations. Compliant with medications Objective Alert: Yes [place]: Person, Place Mood: Calm Affect: Restricted Memory Intact: Comment (Not assessed) Hallucinations: Auditory (denies today) Delusions: Yes Delusion Type: Paranoid (internally stimulated) Suicidal: Ideation (No SI) Homicidal: Ideation (No HI) Insight/Judgment Poor Vitals/IOs Vital Signs Date Time Temp Pulse Resp B/P Pulse Ox O2 Delivery O2 Flow Rate FiO2 07/04/16 06:00 97.3 65 18 109/55 99 Assessment & Plan Problem List: (1) Bipolar disorder ICD Code: F31.9 (2) Cannabis abuse ICD Code: F12.10 Assessment & Plan Continue current treatment plan Justification for Cont. Inpt. Patient will decompensate in a less restrictive setting Request HC Surrog/Guard Advoc?: Yes Problem Qualifiers (1) Bipolar disorder: Qualified Code: F31.2 - Bipolar affective disorder, currently manic, severe, with psychotic features Hakan Shannon DO July 04, 2016 14:21
[2016-07-04 14:53] VITALS: BP 119/60; PULSE 80; RESP 18; TEMP 98.2; O2SAT 100
[2016-07-04] MEDS: ZOLPIDEM TARTRATE 5 MG TAB PO PRN (20:55)
[2016-07-04] MEDS: diphenhydrAMINE HCL 50 MG CAP PO PRN (20:55)
[2016-07-04] MEDS: OLANZapine ODT 20 MG TAB PO SCH (20:55)
[2016-07-04] MEDS: LORazepam 1 MG TAB PO PRN (22:38)
[2016-07-05 05:48] VITALS: BP 139/65; PULSE 62; RESP 18; TEMP 97.4; O2SAT 99
[2016-07-05] MEDS: OLANZapine ODT 10 MG TAB PO SCH (08:12)
[2016-07-05] MEDS: VALPROIC ACID SYRUP 250 MG/5 ML UDC PO SCH ×2 (08:12→20:33)
[2016-07-05] MEDS: ARTIFICIAL TEARS OPTH SOLN 15 ML BTL EACH EYE SCH ×4 (08:13→20:32)
--- NOTE | 2016-07-05 11:46 | HHI.PYPN ---
Subjective Remarks Patient was seen and case discussed with nursing. Patient remains aloof and bizarre throughout the interview. Engaging me in a bizarre hand shake. Continues with exaggerated facial expressions the delayed thought process and speech. Denies auditory visual hallucinations. Spending the day reading a novel. Preoccupied with his ancestry Objective Alert: Yes [place]: Person, Place Mood: Calm Affect: Blunted Memory Intact: Comment (Not assessed) Hallucinations: Auditory (denies today) Delusions: Yes Delusion Type: Paranoid (internally stimulated) Suicidal: Ideation (No SI) Homicidal: Ideation (No HI) Insight/Judgment Poor Labs Test 07/05/16 07:50 Valproic Acid (Depakene) Level 60 MCG/ML Vitals/IOs Vital Signs Date Time Temp Pulse Resp B/P Pulse Ox O2 Delivery O2 Flow Rate FiO2 07/05/16 05:48 97.4 62 18 139/65 99 Assessment & Plan Problem List: (1) Bipolar disorder ICD Code: F31.9 (2) Cannabis abuse ICD Code: F12.10 Assessment & Plan Continue current treatment plan Justification for Cont. Inpt. Patient will decompensate in a less restrictive setting Request HC Surrog/Guard Advoc?: Yes Problem Qualifiers (1) Bipolar disorder: Qualified Code: F31.2 - Bipolar affective disorder, currently manic, severe, with psychotic features Hakan Shannon DO July 05, 2016 11:46
[2016-07-05 18:13] VITALS: BP 123/58; PULSE 102; RESP 18; TEMP 97.9; O2SAT 97
[2016-07-05 20:12] VITALS: BP 136/84; PULSE 85; RESP 16; TEMP 98.2; O2SAT 99
[2016-07-05] MEDS: OLANZapine ODT 20 MG TAB PO SCH (20:34)
[2016-07-05] MEDS: ZOLPIDEM TARTRATE 5 MG TAB PO PRN (21:37)
[2016-07-06 06:05] VITALS: BP 148/66; PULSE 88; RESP 16; TEMP 98.2; O2SAT 98
[2016-07-06] MEDS: OLANZapine ODT 10 MG TAB PO SCH (08:39)
[2016-07-06] MEDS: VALPROIC ACID SYRUP 250 MG/5 ML UDC PO SCH ×2 (08:41→21:29)
[2016-07-06] MEDS: ARTIFICIAL TEARS OPTH SOLN 15 ML BTL EACH EYE SCH ×4 (08:41→21:28)
--- NOTE | 2016-07-06 10:17 | HHI.PYPN ---
Subjective Remarks Patient seen and examined with counselor and nurse. Chart reviewed. Case discussed with nursing staff who reports patient is somewhat intrusive and remains religiously preoccupied. On my examination today, the patient presents with an intense stare. He says that he is feeling "much better! A-ok. I'm stabilized." He then says, "I don't need any meds." He gets down on his knees and says, "I'm the one who is within begging for forgiveness." Later he notes, "I can't do it any more. I'm Dr. Eason, Dr. Conley. I'm not giving up on mi famiglia , mi familioso." He then threatens to call 911 if he is not discharged. Remains internally preoccupied. No side effects from medications. Review of Systems ROS Limitations: Psychotic, Poor Historian Except as stated in HPI: all other systems reviewed are Neg Objective Alert: Yes [place]: Person, Place Mood: Anxious Affect: Labile Memory Intact: Comment (Not assessed) Hallucinations: Auditory (int stim) Delusions: Yes Delusion Type: Paranoid (bizarre) Suicidal: Ideation (No SI) Homicidal: Ideation (No HI) Insight/Judgment Poor Remarks No motor abnormalities noted. Thought process somewhat disorganized. Speech rambling. Grooming and hygiene fair. Labs Labs reviewed. Depakote level was at the low end of the therapeutic range over the weekend. Vitals/IOs Vital Signs Date Time Temp Pulse Resp B/P Pulse Ox O2 Delivery O2 Flow Rate FiO2 07/06/16 06:05 98.2 88 16 148/66 98 Assessment & Plan Problem List: (1) Bipolar disorder ICD Code: F31.9 (2) Cannabis abuse ICD Code: F12.10 Assessment & Plan Titrate Depakote to 750 mg twice daily for mood stabilization. Plan to check a Depakote level later in the week. Continue Zyprexa as ordered for now, but we may need to consider a trial of a third antipsychotic. Given that the patient has already tried Abilify and Zyprexa, it might be reasonable at this juncture to try a typical antipsychotic. Also, given history of autoimmune disease and so far treatment-resistant psychosis, I will check an MRI brain and EEG as a first pass to assess for a possible autoimmune encephalitis. Continue to monitor on the high acuity unit. Continue other medications and care as ordered. Justification for Cont. Inpt. Impairment in reality construction. Medication changes in process. Medical workup in process. High risk for decompensation in less restrictive environment. Discharge Planning Residential following psychiatric stabilization. Request HC Surrog/Guard Advoc?: Yes Problem Qualifiers (1) Bipolar disorder: Qualified Code: F31.2 - Bipolar affective disorder, currently manic, severe, with psychotic features Noe Sr MD July 06, 2016 10:17
[2016-07-06] MEDS: SODIUM CHLORIDE 0.65% NASAL SPRAY 45 ML BTL NASAL PRN ×2 (17:10→21:32)
[2016-07-06 17:43] VITALS: BP 107/56; PULSE 72; RESP 16; TEMP 98.7; O2SAT 98
[2016-07-06] MEDS: OLANZapine ODT 20 MG TAB PO SCH (21:29)
[2016-07-06] MEDS: ZOLPIDEM TARTRATE 5 MG TAB PO PRN (22:20)
[2016-07-07 05:53] VITALS: BP 116/57; PULSE 53; RESP 16; TEMP 98; O2SAT 100
--- NOTE | 2016-07-07 09:50 | HHI.PYPN ---
Subjective Remarks Patient seen and examined with counselor and nurse. Chart reviewed. Case discussed with nurse, counselor, recreation and occupational therapists in treatment team. admin secretary informs me that the [facility] director of patient care has agreed to hear patient's writ of habeas tomorrow. Nurse reports patient remains bizarre. Occupation therapist does note that patient can remain relevant for some time in interaction and articulated reasonable goals for the future. On my examination today, patient remains behaviorally disorganized. He is initially quite giggly and initially 'speaks' in sign language. Affect remains intense and speech is stilted when he finally does begin speaking. He once again says that he believes that he is here on visitation. He is quite discharge focused. He says, "don't be cramping my style, Mr. Backits [ apparently, a play on my name]. [place] [email or web address]." He perseverates on shoes for a while before returning to his main point, which is that he needs to be released to be with "mi famiglia, mi familioso." Becomes quite irritable and dysphoric when we stress that he is not stable for discharge. He accuses the counselor of being a "shadow doctor" who is "controlling" this physician and making me keep patient in the hospital. Echolalia is present. No evident side effects from medications. No staff available yesterday to take pt to MRI/EEG per nursing staff. Plan is to obtain these studies today. Lengthy discussion with patient's parents regarding patient's progress. Parent' s feel he is worse with Zyprexa than Abilify, although they agree that Abilify did not result in adequate symptomatic control either. Father thinks that patient might have done best with the Haldol he received PRN around admission. We discussed switching out of class to typical antipsychotic given inadequate response to 2 atypicals. Risks and benefits of this class of medications reviewed in detail. We discussed the concerns for tardive dyskinesia among other things. Parents agree that trying a scheduled dose of Haldol at this point in a cross taper fashion from Zyprexa is a reasonable approach. 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 Also discussed patient's writ, and parents plan to be at court on . About 20 minutes spent in telephone consultation with parents. They thank me for the call. Review of Systems ROS Limitations: Psychotic, Poor Historian Except as stated in HPI: all other systems reviewed are Neg Objective Alert: Yes [place]: Person, Place Mood: Agitated, Anxious Affect: Labile Memory Intact: Comment (Not formally assessed) Hallucinations: Auditory (Once again appears internally stimulated.) Delusions: Yes Delusion Type: Paranoid, Other (bizarre) Suicidal: Ideation (No SI) Homicidal: Ideation (No HI) Insight/Judgment Poor Remarks No abnormal motor movements noted. Speech rambling, pressured. Grooming and hygiene fair. Labs Labs reviewed. Vitals/IOs Vital Signs Date Time Temp Pulse Resp B/P Pulse Ox O2 Delivery O2 Flow Rate FiO2 07/07/16 05:53 98.0 53 16 116/57 100 Assessment & Plan Problem List: (1) Bipolar disorder ICD Code: F31.9 (2) Cannabis abuse ICD Code: F12.10 Assessment & Plan Patient remains severely decompensated from his mood disorder with psychotic features. Start Haldol 5mg PO BID. Taper Zyprexa to 5/10mg. Continue Depakote 750mg BID as ordered; check a VPA level morning. MRI and EEG planned for today. Continue to monitor on high acuity unit. Continue other medications and care as ordered. Justification for Cont. Inpt. Impairment in reality construction. Medication changes in process. Medical workup ongoing. Very high risk for decompensation in a less restrictive environment. Patient would almost assuredly rapidly decompensate and require rehospitalization if discharged at this point. Discharge Planning Pending psychiatric stabilization. Realistically, patient will likely require an additional 1-2 weeks for adequate stabilization to allow for transfer to residential in [place] as this is a several hour ride by car. Request HC Surrog/Guard Advoc?: Yes Problem Qualifiers (1) Bipolar disorder: Qualified Code: F31.2 - Bipolar affective disorder, currently manic, severe, with psychotic features Noe Sr MD July 07, 2016 09:50
[2016-07-07] MEDS: SODIUM CHLORIDE 0.65% NASAL SPRAY 45 ML BTL NASAL PRN ×3 (10:32→21:56)
[2016-07-07] MEDS: ARTIFICIAL TEARS OPTH SOLN 15 ML BTL EACH EYE SCH ×4 (10:32→21:00)
[2016-07-07] MEDS: OLANZapine ODT 10 MG TAB PO SCH (10:32)
[2016-07-07] MEDS: VALPROIC ACID SYRUP 250 MG/5 ML UDC PO SCH ×2 (10:33→21:46)
[2016-07-07] MEDS ORDERED: GADODIAMIDE PF 287 MG/ML 5 ML VIAL (for RAD MRI) IV ONE (14:02)
--- NOTE | 2016-07-07 15:55 | RADRPT ---
EXAM DATE/TIME: 07/07/2016 13:43 [facility] COMPARISON: No previous studies available for comparison. INDICATIONS : Encephalitis. History of autoimmune diagnosis with psychosis. CONTRAST: 15 cc Omniscan (gadodiamide) IV MEDICAL HISTORY : Ventro-septal defect. [place]-urticaria. SURGICAL HISTORY : Sinus. ENCOUNTER: Subsequent ACUITY: 3 day PAIN SCORE: 0/10 LOCATION: cranial TECHNIQUE: Multiplanar, multisequence MRI of the brain was performed both prior to and following the administrat ion of paramagnetic contrast. FINDINGS: CEREBRUM: The ventricles are normal for age. No evidence of midline shift, mass lesion, hemorrhage or acute in farction. No extraaxial fluid collections are seen. The pituitary gland and suprasellar cistern are normal in configuration. WHITE MATTER: No significant signal abnormalities are seen in the white matter. POSTERIOR FOSSA: The cerebellum and brainstem are intact. The 4th ventricle is midline. The cerebellopontine angle is unremarkable. The cerebellar tonsils are normal in position. DIFFUSION IMAGING: No focal areas of restricted diffusion are seen. No evidence of acute infarction. EXTRACRANIAL: The visualized portions of the orbits and paranasal sinuses are unremarkable. POST-CONTRAST: No abnormal areas of parenchymal or dural enhancement. No evidence of blood-brain barrier breakdown. CONCLUSION: Normal examination. Rudolph Brown MD on July 07, 2016 at 15:47 Board Certified Radiologist. This report was verified electronically.
--- NOTE | 2016-07-07 16:40 | MG ---
cc: PADMA WATSON M.D. Lab No: Date: 07/07/2016 Age: Sex: M Race: Cc: DATE OF 1995, 20 years old EEG NUMBER [id number] Sr ROOM [id number] Awake, drowsy, asleep. Hyperventilation with good effort and photic stimulation. INDICATION A 20-year-old male, [place] Acted with psychoses. History of anxiety, bipolar, psychotic episode, VSD, heartburn, mood disorder, substance use, caffeine, marijuana, tobacco. MEDICATIONS On: 1. Zyprexa. 2. Ambien. 3. Benadryl. 4. Depakote. 5. Olanzapine. DESCRIPTION OF RECORD There is some possible mild slowing with 6 Hz but overall symmetrical background. Photic stimulation does elicit a posterior driving response. There is no evidence of any epileptiform features. Minor artifact with movement seen. Post hyperventilation the patient states his body shaking and having a seizure. There is no electroencephalographic evidence of any seizure like activity. At one point he takes the blanket off and then he states that her talking to the future. IMPRESSION Mildly abnormal EEG due to some mild slowing, may be due to encephalopathic process versus medication effect versus somnolent state, but there is no evidence of any epileptic activity especially where the patient stated he was having a seizure. Clinical correlation. MD TREVIN Garcia/YOSEPH /4:07 PM /4:21 PM
[2016-07-07 18:33] VITALS: BP 126/64; PULSE 90; RESP 18; TEMP 98.7; O2SAT 98
[2016-07-07] MEDS: diphenhydrAMINE HCL 50 MG CAP PO PRN (19:33)
[2016-07-07] MEDS ORDERED: OLANZapine ODT 10 MG TAB PO SCH (21:00)
[2016-07-07] MEDS: HALOPERIDOL 5 MG TAB PO SCH (21:46)
[2016-07-07] MEDS: ZOLPIDEM TARTRATE 5 MG TAB PO PRN (21:54)
[2016-07-08 06:08] VITALS: BP 114/54; PULSE 62; RESP 18; TEMP 97.3; O2SAT 100
[2016-07-08] MEDS ORDERED: OLANZapine ODT 5 MG TAB PO SCH (09:00)
[2016-07-08] MEDS: HALOPERIDOL 5 MG TAB PO SCH ×2 (09:06→21:27)
[2016-07-08] MEDS: ARTIFICIAL TEARS OPTH SOLN 15 ML BTL EACH EYE SCH ×4 (09:06→21:27)
[2016-07-08] MEDS: VALPROIC ACID SYRUP 250 MG/5 ML UDC PO SCH (09:06)
--- NOTE | 2016-07-08 14:02 | HHI.PYPN ---
Subjective Remarks Patient seen and examined with nurse. Chart reviewed. Case discussed with nursing staff who reports that the patient was able to sleep overnight. On my examination today, the patient seems modestly more organized and appropriate. He does not verbalize any of his previous bizarre content. He denies AVH, although he remains int stim. He denies SI/HI. He does continue to exhibit some echophenomena. Denies side effects from meds. Does complain that Depakote liquid is somewhat nauseating. Didn't do well with Depakote tabs either. We will try sprinkles. Review of Systems ROS Limitations: Psychotic, Poor Historian Except as stated in HPI: all other systems reviewed are Neg Objective Alert: Yes [place]: Person, Place Mood: Calm Affect: Other (more appropriate) Memory Intact: Comment (Not formally assessed) Hallucinations: Auditory (Int stim) Delusions: No Delusion Type: Other (No delusional material volunteered.) Suicidal: Ideation (No SI) Homicidal: Ideation (No HI) Insight/Judgment Poor Remarks No motor abnormalities noted. Thought process marginally more organized. Labs Labs reviewed. No new labs. EEG mild slowing, ?medication effect. Last Impressions Brain MRI 07/07/16 0000 Signed Impressions: Service Date/Time: Thursday, July 07, 2016 13:43 - CONCLUSION: Normal examination. Rudolph Brown MD Vitals/IOs Vital Signs Date Time Temp Pulse Resp B/P Pulse Ox O2 Delivery O2 Flow Rate FiO2 07/08/16 06:08 97.3 62 18 114/54 100 Assessment & Plan Problem List: (1) Bipolar disorder ICD Code: F31.9 (2) Cannabis abuse ICD Code: F12.10 Assessment & Plan Continue cross taper Zyprexa to Haldol. Haldol 7.5mg BID and Zyprexa 10mg qHS. Plan to eliminate Zyprexa tomorrow or Wednesday. Switch Depakene liquid to Depakote sprinkles 750mg BID. Depakote level ordered for tomorrow morning. Continue to monitor on the high acuity unit. Continue other medications and care as ordered. Justification for Cont. Inpt. Impairment in reality construction. Medication changes in process. High risk for decompensation in a less restrictive environment. Discharge Planning Pending outcome of [address] tomorrow. I believe patient requires ongoing inpatient psychiatric stabilization. If his release is ordered by the correctional therapy teacher tomorrow, I anticipate patient will rapidly decompensate and require readmission. Request HC Surrog/Guard Advoc?: Yes Problem Qualifiers (1) Bipolar disorder: Qualified Code: F31.2 - Bipolar affective disorder, currently manic, severe, with psychotic features Noe Sr MD July 08, 2016 14:02
[2016-07-08 17:20] VITALS: BP 133/60; PULSE 75; RESP 18; TEMP 98.2; O2SAT 99
[2016-07-08] MEDS: SODIUM CHLORIDE 0.65% NASAL SPRAY 45 ML BTL NASAL PRN ×2 (18:17→21:27)
[2016-07-08] MEDS ORDERED: OLANZapine ODT 10 MG TAB PO SCH (21:00)
[2016-07-08] MEDS: ALUMINUM/MAGNESIUM/SIMETH 30 ML CUP PO PRN (21:26)
[2016-07-08] MEDS: ZOLPIDEM TARTRATE 5 MG TAB PO PRN (21:27)
[2016-07-08] MEDS: DIVALPROEX SODIUM SPRINKLES 125 MG CAP PO SCH (21:27)
[2016-07-09 06:14] VITALS: BP 101/50; PULSE 61; RESP 18; TEMP 97.2; O2SAT 99
[2016-07-09] MEDS: DIVALPROEX SODIUM SPRINKLES 125 MG CAP PO SCH ×2 (09:32→21:19)
[2016-07-09] MEDS: ARTIFICIAL TEARS OPTH SOLN 15 ML BTL EACH EYE SCH ×4 (09:32→21:20)
[2016-07-09] MEDS: HALOPERIDOL 5 MG TAB PO SCH ×2 (09:33→21:20)
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
[2016-07-09] MEDS: CALCIUM CARBONATE 500 MG CHEWABLE TAB CHEW PRN (14:20)
[2016-07-09] MEDS ORDERED: BENZTROPINE MESYLATE 2 MG/2 ML VIAL IM PRN (14:30)
[2016-07-09] MEDS ORDERED: BENZTROPINE MESYLATE 1 MG TAB PO PRN (14:30)
[2016-07-09 16:45] VITALS: BP 146/63; PULSE 96; RESP 18; TEMP 98.4; O2SAT 97
[2016-07-09] MEDS: LORazepam 1 MG TAB PO PRN (19:10)
[2016-07-09] MEDS: clonazePAM 0.5 MG TAB PO SCH (21:19)
[2016-07-09] MEDS: ZOLPIDEM TARTRATE 5 MG TAB PO PRN (21:19)
[2016-07-10 06:22] VITALS: BP 98/52; PULSE 54; RESP 18; TEMP 98.1; O2SAT 98
[2016-07-10] MEDS: ARTIFICIAL TEARS OPTH SOLN 15 ML BTL EACH EYE SCH ×4 (09:00→20:59)
[2016-07-10] MEDS: DIVALPROEX SODIUM SPRINKLES 125 MG CAP PO SCH ×2 (09:15→21:05)
[2016-07-10] MEDS: HALOPERIDOL 5 MG TAB PO SCH ×2 (09:15→20:59)
[2016-07-10] MEDS: clonazePAM 0.5 MG TAB PO SCH ×3 (09:16→20:59)
--- NOTE | 2016-07-10 09:20 | HHI.PYPN ---
Subjective Remarks Patient seen and examined with nurse. Chart reviewed. Case discussed with nursing staff who reports patient remains somewhat somatic and anxious. For me today, patient seems noticeably calmer since addition of Klonopin and titration of Haldol. I spoke with mother over the phone today, and she too noted a beneficial effect from benzodiazepine during visitation last night, finding the patient much more lucid than in previous visits. Patient continues to articulate a lot of goals for the future, but these seem more manageable. He would like to return to work at [employer], attend a local college and eventually go to [place]. Mild somatic preoccupation. Anxiety lessened. No SI/HI. More natural and spontaneous in our interaction. Denies side effects from meds. Review of Systems ROS Limitations: Poor Historian Except as stated in HPI: all other systems reviewed are Neg Objective Alert: Yes [place]: Person, Place Mood: Calm Affect: Blunted Memory Intact: Comment (Fair) Hallucinations: Other (No AVH) Delusions: No Delusion Type: Other (No AVH) Suicidal: Ideation (No SI) Homicidal: Ideation (No HI) Insight/Judgment Poor Remarks No hand tremor, no cog-wheeling, no masked facies, no dystonia, no dyskinesia. TP more linear today. Speech less stilted and more appropriate. Labs Labs reviewed. Vitals/IOs Vital Signs Date Time Temp Pulse Resp B/P Pulse Ox O2 Delivery O2 Flow Rate FiO2 07/10/16 06:22 98.1 54 18 98/52 98 Assessment & Plan Problem List: (1) Bipolar disorder ICD Code: F31.9 (2) Cannabis abuse ICD Code: F12.10 Assessment & Plan Titrate Klonopin to 0.5mg TID. Continue Haldol 10mg BID. Could consider Haldol decanoate. Continue Depakote as ordered. Could consider switching to Li or CBZ if mood does not adequately stabilize with VPA. I will check an updated CBC and CMP as well as a CK as mother notes this has been chronically elevated in the 800s in the past. Continue to monitor on high acuity unit. Continue other medications and care as ordered. Case signed out to Dr. Barrera who will be covering patient in my absence. Justification for Cont. Inpt. Medication changes in process. Impairment in reality construction, although this is hopefully beginning to resolve. High risk for decompensation in a less restrictive environment. Discharge Planning Residential treatment in [place] following acute psychiatric stabilization. Request HC Surrog/Guard Advoc?: Yes Problem Qualifiers (1) Bipolar disorder: Qualified Code: F31.2 - Bipolar affective disorder, currently manic, severe, with psychotic features Noe Sr MD July 10, 2016 09:20
[2016-07-10 15:45] VITALS: BP 121/40; PULSE 97; RESP 18; TEMP 97.8; O2SAT 98
[2016-07-10] MEDS: LORazepam 1 MG TAB PO PRN (18:25)
[2016-07-11 06:27] VITALS: BP 140/70; PULSE 78; RESP 17; TEMP 98.7; O2SAT 100
[2016-07-11] MEDS: HALOPERIDOL 5 MG TAB PO SCH ×2 (08:31→21:00)
[2016-07-11] MEDS: SODIUM CHLORIDE 0.65% NASAL SPRAY 45 ML BTL NASAL PRN ×2 (08:32→17:32)
[2016-07-11] MEDS: ARTIFICIAL TEARS OPTH SOLN 15 ML BTL EACH EYE SCH ×4 (08:32→21:00)
[2016-07-11] MEDS: DIVALPROEX SODIUM SPRINKLES 125 MG CAP PO SCH ×2 (08:33→21:17)
[2016-07-11] MEDS: clonazePAM 0.5 MG TAB PO SCH ×2 (08:33→15:14)
[2016-07-11 10:13] LABS: BASOPHIL % 0.3 % (0.0-2.0); EOSINOPHIL % 0.7 % (0.0-4.0); HEMATOCRIT 43.2 % (39.0-51.0); HEMO FLAGS DIFF FINAL; LYMPH % 17.1 % (9.0-44.0); LYMPHOCYTE # 0.9 TH/MM3 (1.0-4.8); MEAN CELL VOLUME 90.4 FL (80.0-100.0); MEAN CORPUSCULAR HEMOGLOBIN 30.7 PG (27.0-34.0); MEAN CORPUSCULAR HGB CONC 33.9 % (32.0-36.0); MONO % 8.9 % (0.0-8.0); PLATELET COUNT 181 TH/MM3 (150-450); RED BLOOD COUNT 4.79 MIL/MM3 (4.50-5.90); RED CELL DISTRIBUTION WIDTH 14.3 % (11.6-17.2); WHITE BLOOD COUNT 5.4 TH/MM3 (4.0-11.0)
[2016-07-11 10:34] LABS: ALKALINE PHOSPHATASE 80 U/L (45-117); ALT (GPT) 15 U/L (12-78); ANION GAP 7 MEQ/L (5-15); AST (GOT) 12 U/L (15-37); BICARBONATE 27.5 MEQ/L (21.0-32.0); BLOOD UREA NITROGEN 15 MG/DL (7-18); CHLORIDE 103 MEQ/L (98-107); GLOMERULAR FILTRATION RATE 98 ML/MIN (>89); POTASSIUM 4.1 MEQ/L (3.5-5.1); SODIUM (NA) 137 MEQ/L (136-145); TOTAL BILIRUBIN ADULT 0.6 MG/DL (0.2-1.0)
[2016-07-11 10:49] LABS: CREATINE KINASE 89 U/L (39-308)
[2016-07-11] MEDS: CALCIUM CARBONATE 500 MG CHEWABLE TAB CHEW PRN (11:26)
--- NOTE | 2016-07-11 13:50 | HHI.PYPN ---
Subjective Remarks Patient seen and examined with nurse. Chart reviewed. Case discussed with nursing staff who reports patient has been doing well on the unit. On my examination today, the patient complains of feeling somewhat overly sedated by his current medication regimen. We discuss adjusting timing of Klonopin dosing to ameliorate this problem. Once again, psychotic material seems to be lessening. Mood also appears more stable. No side effects otherwise from medications. No physical complaints. Review of Systems ROS Limitations: Poor Historian Except as stated in HPI: all other systems reviewed are Neg Objective Alert: Yes [place]: Person, Place Mood: Calm Affect: Blunted (remains somewhat blunted) Memory Intact: Comment (Fair) Hallucinations: Other (no audiovisual hallucinations) Delusions: No Delusion Type: Other (no khang delusional material today) Suicidal: Ideation (No SI) Homicidal: Ideation (No HI) Insight/Judgment Poor Remarks No motor abnormalities noted. No hand tremor, no dystonia, tardive dyskinesia. Steady gait and station. Thought process seems more linear and logical. Speech more relevant. Grooming and hygiene fair. Labs Test 07/11/16 09:30 White Blood Count 5.4 TH/MM3 Red Blood Count 4.79 MIL/MM3 Hemoglobin 14.7 GM/DL Hematocrit 43.2 % Mean Corpuscular Volume 90.4 FL Mean Corpuscular Hemoglobin 30.7 PG Mean Corpuscular Hemoglobin 33.9 % Concent Red Cell Distribution Width 14.3 % Platelet Count 181 TH/MM3 Mean Platelet Volume 9.5 FL Neutrophils (%) (Auto) 73.0 % Lymphocytes (%) (Auto) 17.1 % Monocytes (%) (Auto) 8.9 % Eosinophils (%) (Auto) 0.7 % Basophils (%) (Auto) 0.3 % Neutrophils # (Auto) 4.0 TH/MM3 Lymphocytes # (Auto) 0.9 TH/MM3 Monocytes # (Auto) 0.5 TH/MM3 Eosinophils # (Auto) 0.0 TH/MM3 Basophils # (Auto) 0.0 TH/MM3 CBC Comment DIFF FINAL Differential Comment Sodium Level 137 MEQ/L Potassium Level 4.1 MEQ/L Chloride Level 103 MEQ/L Carbon Dioxide Level 27.5 MEQ/L Anion Gap 7 MEQ/L Blood Urea Nitrogen 15 MG/DL Creatinine 0.96 MG/DL Estimat Glomerular Filtration 98 ML/MIN Rate Random Glucose 95 MG/DL Calcium Level 8.7 MG/DL Total Bilirubin 0.6 MG/DL Aspartate Amino Transf 12 U/L (AST/SGOT) Alanine Aminotransferase 15 U/L (ALT/SGPT) Alkaline Phosphatase 80 U/L Total Creatine Kinase 89 U/L Total Protein 6.8 GM/DL Albumin 3.4 GM/DL Labs reviewed. CBC, CMP and CK all unremarkable. Vitals/IOs Vital Signs Date Time Temp Pulse Resp B/P Pulse Ox O2 Delivery O2 Flow Rate FiO2 07/11/16 06:27 98.7 78 17 140/70 100 Assessment & Plan Problem List: (1) Bipolar disorder ICD Code: F31.9 (2) Cannabis abuse ICD Code: F12.10 Assessment & Plan Ongoing improvement in psychosis and mood instability with current meds. Adjust Klonopin to to 0.25/0.25/1mg to lessen daytime sedation. I have also placed an order instructing that the HS dose of Klonopin be given a chance to induce sleep before utilizing Ambien PRN. Continue Haldol 10mg BID; to consider Haldol Dec. Continue Depakote 750mg BID. Continue to monitor on high acuity unit. Continue other medications and care as ordered. Justification for Cont. Inpt. High risk for decompensation in a less restrictive environment until psychiatrically stabilized. Med changes. Discharge Planning To residential facility in [place] once psychiatrically stable. Request HC Surrog/Guard Advoc?: Yes Problem Qualifiers (1) Bipolar disorder: Qualified Code: F31.2 - Bipolar affective disorder, currently manic, severe, with psychotic features Noe Sr MD July 11, 2016 13:50
[2016-07-11 16:52] VITALS: BP 140/72; PULSE 83; RESP 18; TEMP 98; O2SAT 99
[2016-07-11] MEDS: LORazepam 1 MG TAB PO PRN (18:00)
[2016-07-11] MEDS: clonazePAM 1 MG TAB PO SCH (21:17)
[2016-07-11] MEDS: ZOLPIDEM TARTRATE 5 MG TAB PO PRN (21:31)
[2016-07-12 06:00] VITALS: BP 127/60; PULSE 70; RESP 16; TEMP 97.4
[2016-07-12] MEDS: HALOPERIDOL 5 MG TAB PO SCH ×2 (09:14→21:04)
[2016-07-12] MEDS: clonazePAM 0.5 MG TAB PO SCH ×2 (09:15→15:00)
[2016-07-12] MEDS: DIVALPROEX SODIUM SPRINKLES 125 MG CAP PO SCH ×2 (09:15→21:05)
[2016-07-12] MEDS: ARTIFICIAL TEARS OPTH SOLN 15 ML BTL EACH EYE SCH ×4 (09:16→21:04)
--- NOTE | 2016-07-12 10:41 | HHI.PYPN ---
Subjective Remarks Patient seen in his room with nurse Nemo, patient calm cooperative with me and pleasant with fair eye contact. There is some mild perseveration on his medications though he states the sedation is somewhat less today. He does denies suicidality homicidality voices or visions. For now continue treatment Review of Systems Except as stated in HPI: all other systems reviewed are Neg Objective Alert: Yes [place]: Person, Place Mood: Calm Affect: Blunted (remains somewhat blunted) Memory Intact: Comment (Fair) Hallucinations: Other (no audiovisual hallucinations) Delusions: No Delusion Type: Other (no khang delusional material today) Suicidal: Ideation (No SI) Homicidal: Ideation (No HI) Insight/Judgment Poor Vitals/IOs Vital Signs Date Time Temp Pulse Resp B/P Pulse Ox O2 Delivery O2 Flow Rate FiO2 07/12/16 06:00 97.4 70 16 127/60 07/11/16 16:52 99 Assessment & Plan Problem List: (1) Bipolar disorder ICD Code: F31.9 (2) Cannabis abuse ICD Code: F12.10 Assessment & Plan Estimated LOS: days patient appears somewhat calmer and focused today's compliant with medications, denies voices visions or suicidality. For now continue treatment Justification for Cont. Inpt. At this time patient will decompensate if placed in a lower level of care Discharge Planning To be determined Request HC Surrog/Guard Advoc?: Yes Problem Qualifiers (1) Bipolar disorder: Qualified Code: F31.2 - Bipolar affective disorder, currently manic, severe, with psychotic features Jimmie Barrera MD July 12, 2016 10:41
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
[2016-07-12] MEDS: diphenhydrAMINE HCL 50 MG CAP PO PRN (18:10)
[2016-07-12 18:28] VITALS: BP 133/64; PULSE 89; RESP 16; TEMP 98.7; O2SAT 100
[2016-07-12] MEDS: clonazePAM 1 MG TAB PO SCH (21:04)
[2016-07-12] MEDS: CALCIUM CARBONATE 500 MG CHEWABLE TAB CHEW PRN (21:04)
[2016-07-12] MEDS: ALUMINUM/MAGNESIUM/SIMETH 30 ML CUP PO PRN (21:04)
[2016-07-12] MEDS: ZOLPIDEM TARTRATE 5 MG TAB PO PRN (21:06)
[2016-07-12] MEDS: ACETAMINOPHEN 325 MG TAB PO PRN (22:01)
[2016-07-13 06:19] VITALS: BP 95/45; PULSE 53; RESP 18; TEMP 97.6; O2SAT 96
[2016-07-13] MEDS: ARTIFICIAL TEARS OPTH SOLN 15 ML BTL EACH EYE SCH ×4 (09:00→21:24)
[2016-07-13] MEDS: HALOPERIDOL 5 MG TAB PO SCH ×2 (09:08→21:24)
[2016-07-13] MEDS: clonazePAM 0.5 MG TAB PO SCH (09:09)
[2016-07-13] MEDS: DIVALPROEX SODIUM SPRINKLES 125 MG CAP PO SCH ×2 (09:10→21:00)
--- NOTE | 2016-07-13 12:05 | HHI.PYPN ---
Subjective Remarks Met with patient today in [place] with nurse Hanh and counselor Vitaliy. Patient remains somewhat intense though denying suicidality or voices. Is somewhat excited about possible transurethral facility in [place] closer to his family home. I also talked with patient's mother and father at at [phone] they give me further history related to the chronicity of this man's illness. There law of concern and interest in his medications how he is doing and the attempt to transfer him to that of the facility. I made arrangements for us to meet with his family tomorrow morning at 9 AM to further discuss this. The meantime they feel patient may be somewhat sedated we'll discontinue his daily schedule Klonopin continue the at bedtime dose Review of Systems Except as stated in HPI: all other systems reviewed are Neg Objective Alert: Yes [place]: Person, Place Mood: Calm Affect: Blunted (remains somewhat blunted) Memory Intact: Comment (Fair) Hallucinations: Other (no audiovisual hallucinations) Delusions: No Delusion Type: Other (no khang delusional material today) Suicidal: Ideation (No SI) Homicidal: Ideation (No HI) Insight/Judgment Poor Vitals/IOs Vital Signs Date Time Temp Pulse Resp B/P Pulse Ox O2 Delivery O2 Flow Rate FiO2 07/13/16 06:19 97.6 53 18 95/45 96 Assessment & Plan Problem List: (1) Bipolar disorder ICD Code: F31.9 (2) Cannabis abuse ICD Code: F12.10 Assessment & Plan Estimated LOS: days patient showing some improvement in this psychosis, is compliant with medications, will meet with family tomorrow to further discuss diagnosis medications and placement issues Justification for Cont. Inpt. At this time patient would decompensate with placed in the lower level of care Discharge Planning To be determined Request HC Surrog/Guard Advoc?: Yes Problem Qualifiers (1) Bipolar disorder: Qualified Code: F31.2 - Bipolar affective disorder, currently manic, severe, with psychotic features Jimmie Barrera MD July 13, 2016 12:05
[2016-07-13] MEDS: LORazepam 1 MG TAB PO PRN (12:55)
[2016-07-13 18:00] VITALS: BP 119/54; PULSE 75; RESP 16; TEMP 97.9; O2SAT 97
[2016-07-13] MEDS: diphenhydrAMINE HCL 50 MG CAP PO PRN (20:03)
[2016-07-13] MEDS: clonazePAM 1 MG TAB PO SCH (21:23)
[2016-07-13] MEDS: ZOLPIDEM TARTRATE 5 MG TAB PO PRN (21:24)
[2016-07-14 06:17] VITALS: BP 101/51; PULSE 55; RESP 18; TEMP 97.3; O2SAT 99
[2016-07-14] MEDS: ARTIFICIAL TEARS OPTH SOLN 15 ML BTL EACH EYE SCH ×4 (07:57→21:13)
[2016-07-14] MEDS: HALOPERIDOL 5 MG TAB PO SCH ×2 (07:57→21:00)
[2016-07-14] MEDS: DIVALPROEX SODIUM SPRINKLES 125 MG CAP PO SCH ×2 (07:57→21:14)
--- NOTE | 2016-07-14 12:04 | HHI.PYPN ---
Subjective Remarks Met with patient's mother and father prior to visiting with patient. They feel he is doing somewhat better though still fragile, we did discuss medications, they willing to continue with present regimen. I also considering now making more specific arrangements have patient transferred up to residential facility in [place]. After talking with family and did visit with the patient, patient somewhat labile today showing some reluctance to take medication stating he has "hives", he does have a small rash on his right shoulder that does not appear to be a reaction to medication. For now continue medication no change in did encourage the patient to show continue compliance with medication, and to look forward to possible discharge and transfer to facility in [place] Review of Systems Except as stated in HPI: all other systems reviewed are Neg Objective Alert: Yes [place]: Person, Place Mood: Calm Affect: Blunted (remains somewhat blunted) Memory Intact: Comment (Fair) Hallucinations: Other (no audiovisual hallucinations) Delusions: No Delusion Type: Other (no khang delusional material today) Suicidal: Ideation (No SI) Homicidal: Ideation (No HI) Insight/Judgment Poor Vitals/IOs Vital Signs Date Time Temp Pulse Resp B/P Pulse Ox O2 Delivery O2 Flow Rate FiO2 07/14/16 06:17 97.3 55 18 101/51 99 Assessment & Plan Problem List: (1) Bipolar disorder ICD Code: F31.9 (2) Cannabis abuse ICD Code: F12.10 Assessment & Plan Estimated LOS: days patient continues somewhat labile today somewhat depressed and somatic. Met with family they feel he is doing better consider possible transfer to residential facility in [place] by the end of this week Justification for Cont. Inpt. At this time patient will decompensate if placed in a lower level of care Discharge Planning To be determined Request HC Surrog/Guard Advoc?: Yes Problem Qualifiers (1) Bipolar disorder: Qualified Code: F31.2 - Bipolar affective disorder, currently manic, severe, with psychotic features Jimmie Barrera MD July 14, 2016 12:03
[2016-07-14] MEDS: diphenhydrAMINE HCL 50 MG CAP PO PRN (20:18)
[2016-07-14 20:47] VITALS: BP 154/63; PULSE 75; RESP 18; TEMP 97.4; O2SAT 97
[2016-07-14] MEDS: ZOLPIDEM TARTRATE 5 MG TAB PO PRN (21:14)
[2016-07-14] MEDS: clonazePAM 1 MG TAB PO SCH (21:15)
[2016-07-15 06:10] VITALS: BP 119/57; PULSE 62; RESP 18; TEMP 97.8; O2SAT 99
[2016-07-15] MEDS: ARTIFICIAL TEARS OPTH SOLN 15 ML BTL EACH EYE SCH ×4 (09:14→20:15)
[2016-07-15] MEDS: HALOPERIDOL 5 MG TAB PO SCH ×2 (09:14→20:16)
[2016-07-15] MEDS: DIVALPROEX SODIUM SPRINKLES 125 MG CAP PO SCH ×2 (09:14→20:16)
[2016-07-15] MEDS: diphenhydrAMINE HCL 50 MG CAP PO PRN (13:01)
--- NOTE | 2016-07-15 16:24 | HHI.PYPN ---
Subjective Remarks Patient seen in his room with nurse Amarilis, continue somewhat labile tearful concerned about process relating to his discharge from here and placement in the rehabilitation facility in [place]. Doesn't most with counselor it seems that that facility is somewhat dragging his feet. Patient compliant medications showing some frustration with these issues but coping with them. For now continue treatment Review of Systems Except as stated in HPI: all other systems reviewed are Neg Objective Alert: Yes [place]: Person, Place Mood: Calm Affect: Blunted (remains somewhat blunted) Memory Intact: Comment (Fair) Hallucinations: Other (no audiovisual hallucinations) Delusions: No Delusion Type: Other (no khang delusional material today) Suicidal: Ideation (No SI) Homicidal: Ideation (No HI) Insight/Judgment Poor Vitals/IOs Vital Signs Date Time Temp Pulse Resp B/P Pulse Ox O2 Delivery O2 Flow Rate FiO2 07/15/16 06:10 97.8 62 18 119/57 99 Assessment & Plan Problem List: (1) Bipolar disorder ICD Code: F31.9 (2) Cannabis abuse ICD Code: F12.10 Assessment & Plan Estimated LOS: days patient remains somewhat labile and tearful, though compliant medications there is a process issues related to this transfer to a rehabilitation facility in [place] Justification for Cont. Inpt. At this time patient will decompensate the placed in a lower level of care Discharge Planning To be determined Request HC Surrog/Guard Advoc?: Yes Problem Qualifiers (1) Bipolar disorder: Qualified Code: F31.2 - Bipolar affective disorder, currently manic, severe, with psychotic features Jimmie Barrera MD July 15, 2016 16:24
[2016-07-15 18:11] VITALS: BP 154/66; PULSE 104; RESP 18; TEMP 97.3; O2SAT 96
[2016-07-15] MEDS: LORazepam 1 MG TAB PO PRN (18:18)
[2016-07-15] MEDS: clonazePAM 1 MG TAB PO SCH (20:16)
[2016-07-15] MEDS: ZOLPIDEM TARTRATE 5 MG TAB PO PRN (20:17)
[2016-07-16 05:35] VITALS: BP 96/51; PULSE 66; RESP 17; TEMP 97.4; O2SAT 99
[2016-07-16] MEDS: HALOPERIDOL 5 MG TAB PO SCH (08:24)
[2016-07-16] MEDS: DIVALPROEX SODIUM SPRINKLES 125 MG CAP PO SCH (08:24)
[2016-07-16] MEDS: ARTIFICIAL TEARS OPTH SOLN 15 ML BTL EACH EYE SCH ×2 (08:24→12:35)
[2016-07-16] MEDS: CALCIUM CARBONATE 500 MG CHEWABLE TAB CHEW PRN (09:15)
[2016-07-16] MEDS ORDERED: CLON1 PO (10:36)
[2016-07-16] MEDS ORDERED: DIVA125C PO (10:36)
[2016-07-16] MEDS ORDERED: HALO10TA PO (10:36)
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
== END 2016-07-16 13:00 | disposition home or self-care (01) | DRG 885 ==
LOC: NEPJ 16:16 → NEDA 06-27 08:00 → H270 06-27 09:50
PROVIDERS: ADMIT Psychiatry & Neurology Psychiatry; ATTEND Psychiatry & Neurology Psychiatry
DX: F31.9 Bipolar disorder, unspecified (principal); F12.10 Cannabis abuse, uncomplicated; L70.9 Acne, unspecified; R21 Rash and other nonspecific skin eruption
CPT/HCPCS: 70553; 80053; 80164; 80307; 82140; 82550; 85025; 95819; 96372; A9579; J1200; J1630; J2060; Q0163